=== PATIENT | female | born 1955 | race Asian ===

== ENCOUNTER → 2019-05-31 07:54 | Outpatient (CLI) | payer BC, SELFPAY ==
--- NOTE | 2019-06-04 16:49 | DI.NM.S_ITS ---
DATE OF SERVICE: 05/31/2019 PROCEDURE: Exercise perfusion study. INDICATION: Chest pain with underlying hypertension and hyperlipidemia. RADIOPHARMACEUTICAL: 24.0 millicurie technetium-99m Myoview IV was injected at stress and 26.9 millicurie technetium-99m Myoview IV was injected at rest. FINDINGS: CARDIAC STRESS: The patient underwent exercise perfusion study under the supervision of an attending staff. The patient walked on Blair protocol for 7 minutes 29 seconds and achieved 87 percent of target heart rate, normal blood pressure response. Baseline EKG revealed sinus rhythm. During stress, there were significant artifacts seen, however, in recovery, no convincing ischemic changes. No significant arrhythmias. No obvious ischemic symptoms. The patient achieved functional aerobic impairment of -13 percent and 10.1 METS of workload. RAW DATA: There was breast shadow seen. GATED STUDY: Resting LV ejection fraction is 78 percent and stress LV ejection fraction is 83 percent without any obvious wall motion abnormalities. Resting end-diastolic volume 86 mL. No transient ischemic dilatation. TID ratio 0.80, which is within normal limits. Lung-heart ratio is 0.39 which is within normal limits. MYOCARDIAL PERFUSION: Stress supine and resting supine images revealed minimally decreased perfusion of apex which got resolved during prone images, suggestive of breast tissue attenuation artifact. No convincing ischemia or infarction. CONCLUSION: I will call this study a normal myocardial perfusion study with evidence of breast tissue attenuation artifact, which got resolved during prone images. Good exercise tolerance. Preserved LV function. No significant arrhythmias. Normal hemodynamic response. Overall, this is a low risk myocardial perfusion scan. Maureen Morales - ALINA/itzel/kiara doc#: [id number]/job#: [id number] dd: 06/04/2019 12:45:00 dt: 06/04/2019 16:37:00 DICTATING MD/COPIES TO: Kurt Gaspar MD COPIES MNE: IRWIN;
== END ==
PROVIDERS: Family Provider Physician Assistant Medical; PCP Physician Assistant Medical; Referring Provider Physician Assistant Medical; Visit Provider Physician Assistant Medical
DX: R07.9 Chest pain, unspecified (principal); I10 Essential (primary) hypertension; E78.5 Hyperlipidemia, unspecified
CPT/HCPCS: 78452; 93017; A9502

== ENCOUNTER 2019-12-03 10:50 | Emergency (ER) | payer BC, SELFPAY ==
[2019-12-03] VITALS (10 sets, daily range): BP systolic 149–200; BP diastolic 72–92; PULSE 56–73; RESP 14; TEMP 36.7; O2SAT 97–99; BMI 25.0
[2019-12-03 11:23] LABS: Add Manual Diff / Slide Review NO; Basophils Absolute Auto 100 /uL (0-100); Basophils Percent Auto 1.3 % (0-2); Eosinophils Absolute Auto 300 /uL (0-450); Eosinophils Percent Auto 5.2 % (2-4); Hemoglobin 14.6 g/dL (12.0-16.0); Lymphocytes Absolute Auto 1800 /uL (1100-4500); Lymphocytes Percent Auto 32.1 % (25-40); Mean Corpuscular HGB Conc 34.9 % (30-36); Mean Corpuscular Hemoglobin 31.7 PG (26-34); Monocytes Absolute Auto 400 /uL (0-900); Monocytes Percent Auto 6.8 % (3-14); Neutrophils Absolute Auto 3100 /uL (1500-7000); Neutrophils Percent Auto 54.6 % (50-75); Platelet Count 231 X10^3/uL (150-400); Red Blood Cell Count 4.62 X10^6/uL (4.0-5.2); Red Cell Distribution Width 12.9 % (11.6-14.8); White Blood Cell Count 5.7 X10^3/uL (4.5-11.0)
--- NOTE | 2019-12-03 11:29 | ED.HA ---
HPI - Headache <YOLA ChamberlainBC - Last Filed: 12/03/19 14:26> General Chief Complaint: Headache Stated Complaint: pain in head x 3 days Time Seen by Provider: 12/03/19 11:06 Source: patient Mode of arrival: Ambulatory Limitations: no limitations History of Present Illness HPI Narrative: The patient is a 64-year-old female current everyday smoker with history of hypertension, hyperlipidemia who presents with a chief complaint of a left-sided headache for 3 days. She states that 3 days ago she hit her head on a car, and felt slightly lightheaded and dizzy afterwards. She states that this improved, no current lightheadedness or dizziness, no nausea or vomiting. She denies any chest pain or shortness of breath. She states she does have a history of high blood pressure with her systolic usually in the 130s. She presents to the emergency department with a systolic blood pressure of 200 today. She denies any confusion. She states that the day after she hit her head on the car, she has had left-sided head pain, that comes and goes and feels as though it is pulsing. She states that yesterday she took acetaminophen last night as well as ?leftover oxycodone from a dental procedure.She states that this helped her headache, but she woke up with it again this morning. Patient states that her pain gradually comes on, no thunderclap sensation Related Data Home Medications Medication Instructions Recorded Confirmed hydrochlorothiazide 25 mg PO QDAY #0 08/23/11 metformin [Glucophage XR] 500 mg PO BID #0 08/23/11 rosuvastatin [Crestor] 5 mg PO QDAY #0 08/23/11 Allergies Allergy/AdvReac Type Severity Reaction Status Date / Time Penicillins Allergy Intermediate HIVES Verified 12/03/19 11:07 latex Allergy Mild DERMATITIS Verified 12/03/19 11:07 Review of Systems <ZACHERY Chamberlian - Last Filed: 12/03/19 14:26> Review of Systems Narrative: GENERAL: Denies chills, fatigue, malaise, fever, sweats. HEENT: Denies sinus pain, ear pain, sore throat, difficulty swallowing, dizziness. RESPIRATORY: Denies dyspnea, cough, wheezing, hemoptysis, sputum. CARDIOVASCULAR: Denies chest pain, palpitations, orthopnea, edema, GASTROINTESTINAL: Denies nausea, vomiting, abdominal pain, diarrhea, constipation, melena. : Denies dysuria, frequency, incontinence, hematuria, urinary retention. MUSCULOSKELETAL: denies weakness, joint pain, or bony pain SKIN: Denies rash, skin lesions, or other NEUROLOGIC: See HPI PSYCHIATRIC: No concerning psychosocial issues. 12 point review of systems is negative except for those stated above Patient History <ZACHERY Chamberlain - Last Filed: 12/03/19 14:26> Medical History (Updated 12/03/19 @ 13:37 by ZACHERY Chamberlain) Hypercholesterolemia (Acute) Hypertension (Acute) Type 2 diabetes mellitus (Acute) Social History Smoking Status: Current every day smoker Smoking Status: Current every day smoker tobacco type: cigarettes alcohol intake frequency: 0-2 drinks per day Substance Use Type: does not use Exam <ZACHERY Chamberlain - Last Filed: 12/03/19 14:26> Narrative Exam Narrative: GENERAL: This is a well-nourished, well-developed patient, in no acute distress HEAD: Atraumatic. Normocephalic. No temporal or scalp tenderness. EYES: Pupils equal round and reactive. Extraocular motions intact. No scleral icterus. No injection or drainage. ENT: Nose without bleeding, purulent drainage or septal hematoma. Throat without erythema, tonsillar hypertrophy or exudate. Uvula midline. Airway patent. NECK: Trachea midline. No JVD or lymphadenopathy. Supple, nontender, no meningeal signs. CARDIOVASCULAR: Regular rate and rhythm RESPIRATORY: Clear to auscultation. Breath sounds equal bilaterally. No wheezes, rales, or rhonchi. No cough. No increased respiratory. No accessory GASTROINTESTINAL: Abdomen soft, non-tender, nondistended. No hepato-splenomegaly, or palpable masses. No guarding. EXTREMITIES: No clubbing, cyanosis, or edema. No joint tenderness, effusion, or edema noted. BACK: Nontender without deformity or crepitance. No flank tenderness. NEURO: AOx3. Alert, oriented, GCS 15. Using all extremities normally. SKIN: No rash or erythema on t visible skin. No erythema rash etcetera noted on left side head Initial Vital Signs Initial Vital Signs: Vital Signs Temperature 98.1 F 12/03/19 10:55 Pulse Rate 66 12/03/19 10:55 Respiratory Rate 14 12/03/19 10:55 Blood Pressure 200/92 H 12/03/19 10:55 Pulse Oximetry 99 12/03/19 10:55 <Mary Vergara MD - Last Filed: 12/03/19 18:12> Initial Vital Signs Initial Vital Signs: Vital Signs Temperature 98.1 F 12/03/19 10:55 Pulse Rate 66 12/03/19 10:55 Respiratory Rate 14 12/03/19 10:55 Blood Pressure 200/92 H 12/03/19 10:55 Pulse Oximetry 99 12/03/19 10:55 Scores <ZACHERY Chamberlain - Last Filed: 12/03/19 14:26> GCS [place] coma scale eye opening: Spontaneous [place] coma scale verbal response: Orientated [place] coma scale motor response: Obey commands Zandra coma scale total score: 15 Course <ZACHERY Chamberlain - Last Filed: 12/03/19 14:26> Orders Ordered: ED Orders 12/03/19 11:15 Complete Blood Count AUTO DIFF Stat Comprehensive Metabolic Panel Stat NT-proBNP (BNP-Adult 18+) Stat Partial Thromboplastin Time Stat Prothrombin Time INR Stat Troponin & CK Cardiac Panel Stat 12/03/19 11:41 CT head/brain wo con Stat Urine Microscopic Stat Discontinued Medications Acetaminophen (Tylenol) 975 mg PO NOW ONE Stop: 12/03/19 12:12 Last Admin: 12/03/19 12:59 Dose: 975 mg Documented by: ASHVIN Ketorolac Tromethamine (Toradol) 15 mg IV NOW ONE Stop: 12/03/19 12:12 Last Admin: 12/03/19 12:58 Dose: 15 mg Documented by: ASHVIN Reevaluation(s) Reevaluation #1: Discussed with patient negative head CT. Will treat headache at this point in time. Discussed that [facility] faxed over medication list, does not include anything for blood pressure at this time. Patient states that she might need to see her primary care provider to get a refill. However this point her blood pressure is normalizing Time: 12:12 Vital Signs Vital signs: Vital Signs - 8 hr 12/03/19 10:55 12/03/19 11:05 12/03/19 11:30 Temperature 98.1 F Pulse Rate 66 62 73 Respiratory Rate 14 Blood Pressure 200/92 H Pulse Oximetry 99 98 12/03/19 11:32 12/03/19 11:45 12/03/19 12:00 Temperature Pulse Rate 60 59 L 59 L Respiratory Rate Blood Pressure 164/79 H 156/81 H 167/83 H Pulse Oximetry 98 98 97 12/03/19 12:15 12/03/19 12:30 12/03/19 13:41 Temperature Pulse Rate 58 L 57 L 56 L Respiratory Rate Blood Pressure 151/81 H 149/72 H 176/91 H Pulse Oximetry 97 97 99 12/03/19 13:45 Temperature Pulse Rate Respiratory Rate Blood Pressure 156/84 H Pulse Oximetry <Mary Vergara MD - Last Filed: 12/03/19 18:12> Orders Ordered: ED Orders 12/03/19 11:15 Complete Blood Count AUTO DIFF Stat Comprehensive Metabolic Panel Stat NT-proBNP (BNP-Adult 18+) Stat Partial Thromboplastin Time Stat Prothrombin Time INR Stat Troponin & CK Cardiac Panel Stat 12/03/19 11:41 CT head/brain wo con Stat Urine Microscopic Stat Discontinued Medications Acetaminophen (Tylenol) 975 mg PO NOW ONE Stop: 12/03/19 12:12 Last Admin: 12/03/19 12:59 Dose: 975 mg Documented by: ASHVIN Ketorolac Tromethamine (Toradol) 15 mg IV NOW ONE Stop: 12/03/19 12:12 Last Admin: 12/03/19 12:58 Dose: 15 mg Documented by: ASHVIN Vital Signs Vital signs: Vital Signs - 8 hr 12/03/19 10:55 12/03/19 11:05 12/03/19 11:30 Temperature 98.1 F Pulse Rate 66 62 73 Respiratory Rate 14 Blood Pressure 200/92 H Pulse Oximetry 99 98 12/03/19 11:32 12/03/19 11:45 12/03/19 12:00 Temperature Pulse Rate 60 59 L 59 L Respiratory Rate Blood Pressure 164/79 H 156/81 H 167/83 H Pulse Oximetry 98 98 97 12/03/19 12:15 12/03/19 12:30 12/03/19 13:41 Temperature Pulse Rate 58 L 57 L 56 L Respiratory Rate Blood Pressure 151/81 H 149/72 H 176/91 H Pulse Oximetry 97 97 99 12/03/19 13:45 Temperature Pulse Rate Respiratory Rate Blood Pressure 156/84 H Pulse Oximetry MDM - Headache <Bre Maria [employer]UMENT [employer] AND RE[employer]ER- - Last Filed: 12/03/19 14:26> Lab Data Result diagrams: 12/03/19 11:15 12/03/19 11:15 Labs: Lab Results 12/03/19 12/03/19 12/03/19 Range/Units 11:15 11:15 11:15 WBC 5.7 (4.5-11.0) X10^3/uL RBC 4.62 (4.0-5.2) X10^6/uL Hgb 14.6 (12.0-16.0) g/dL Hct 42.0 (36-46) % MCV 91.0 (80-100) fL MCH 31.7 (26-34) PG MCHC 34.9 (30-36) % RDW 12.9 (11.6-14.8) % Plt Count 231 (150-400) X10^3/uL Neut % (Auto) 54.6 (50-75) % Lymph % (Auto) 32.1 (25-40) % [place] % (Auto) 6.8 (3-14) % Eos % (Auto) 5.2 H (2-4) % Baso % (Auto) 1.3 (0-2) % Neut # (Auto) 3100 (4401-7627) /uL Lymph # (Auto) 1800 (6394-8085) /uL [place] # (Auto) 400 (0-900) /uL Eos # (Auto) 300 (0-450) /uL Baso # (Auto) 100 (0-100) /uL PT 9.8 L (10.1-12.7) SECONDS INR 0.9 (0.9-1.3) APTT 31 (26.4-36.2) SECONDS Sodium 138 (137-145) mmol/L Potassium 4.1 (3.4-5.1) mmol/L Chloride 108 H (98-107) mmol/L Carbon Dioxide 24 (22-32) mmol/L BUN 8 (7-17) mg/dL Creatinine 0.65 (0.52-1.04) mg/dL Estimated GFR > 60.0 (>60) mL/min BUN/Creatinine Ratio 12.3 (6-22) Glucose 112 H (80-110) mg/dL Calcium 9.5 (8.4-10.2) mg/dL Total Bilirubin 0.9 (0.2-1.3) mg/dL AST 23 (14-36) IU/L ALT 21 (<35) IU/L Alkaline Phosphatase 56 (38-126) U/L Total Creatine Kinase (30-135) U/L CK-MB (CK-2) CK-MB (CK-2) Rel Index Troponin I (0.01-0.034) ng/mL NT-Pro-B Natriuret Pep (<125) pg/mL Total Protein 7.5 (6.3-8.2) g/dL Albumin 4.6 (3.5-5.0) g/dL Globulin 2.9 (1.7-4.1) g/dL Albumin/Globulin Ratio 1.6 (1.0-2.8) Urine RBC (0-5/HPF) Urine WBC (0-5/HPF) Ur Squamous Epith Cells (0-5/HPF) Urine Bacteria (None) Ur Culture Indicated? 12/03/19 12/03/19 Range/Units 11:15 11:41 WBC (4.5-11.0) X10^3/uL RBC (4.0-5.2) X10^6/uL Hgb (12.0-16.0) g/dL Hct (36-46) % MCV (80-100) fL MCH (26-34) PG MCHC (30-36) % RDW (11.6-14.8) % Plt Count (150-400) X10^3/uL Neut % (Auto) (50-75) % Lymph % (Auto) (25-40) % [place] % (Auto) (3-14) % Eos % (Auto) (2-4) % Baso % (Auto) (0-2) % Neut # (Auto) (3904-7656) /uL Lymph # (Auto) (2514-1250) /uL [place] # (Auto) (0-900) /uL Eos # (Auto) (0-450) /uL Baso # (Auto) (0-100) /uL PT (10.1-12.7) SECONDS INR (0.9-1.3) APTT (26.4-36.2) SECONDS Sodium (137-145) mmol/L Potassium (3.4-5.1) mmol/L Chloride (98-107) mmol/L Carbon Dioxide (22-32) mmol/L BUN (7-17) mg/dL Creatinine (0.52-1.04) mg/dL Estimated GFR (>60) mL/min BUN/Creatinine Ratio (6-22) Glucose (80-110) mg/dL Calcium (8.4-10.2) mg/dL Total Bilirubin (0.2-1.3) mg/dL AST (14-36) IU/L ALT (<35) IU/L Alkaline Phosphatase (38-126) U/L Total Creatine Kinase 78 (30-135) U/L CK-MB (CK-2) TNP CK-MB (CK-2) Rel Index TNP Troponin I < 0.012 (0.01-0.034) ng/mL NT-Pro-B Natriuret Pep 71 (<125) pg/mL Total Protein (6.3-8.2) g/dL Albumin (3.5-5.0) g/dL Globulin (1.7-4.1) g/dL Albumin/Globulin Ratio (1.0-2.8) Urine RBC None seen (0-5/HPF) Urine WBC None seen (0-5/HPF) Ur Squamous Epith Cells 0-1 /hpf (0-5/HPF) Urine Bacteria Occasional (0-1) (None) Ur Culture Indicated? Cult not indicated Point of Care Testing Glucose POC 107 Urine Dip Bedside Urine Glucose Negative Bedside Urine Bilirubin - Negative Bedside Urine Ketone - Negative Urine Specific [place] 1.010 Bedside Urine Occult Blood +/- Bedside Urine pH 6.0 Bedside Urine Protein - Negative Bedside Urine Urobilinogen - Negative Bedside Urine Nitrite - Negative Bedside Urine Leukocytes - Negative Esterase Imaging Data CT scan - head: Radiologist's Impression: [address] [place] [id number] Scan Report Signed Patient: Maureen Morales LMR#: [id number] : 8Acct:[id number] Age/Sex: 64 / FDate of Service: 12/03/19 Loc: ED Accession Number: [id number] Procedure: CT head/brain wo con [facility]ing [facility]: CT HEAD/BRAIN WO CON INDICATIONS: hit head, lightheaded, headache, htnsive TECHNIQUE: Noncontrast 4.5 mm thick angled axial sections acquired from the foramen magnum to the vertex, with coronal and sagittal reformats. For radiation dose reduction, the following was used: automated exposure control, adjustment of mA and/or kV according to patient size. COMPARISON: None. FINDINGS: Image quality: Excellent. CSF spaces: Basal cisterns are patent. No extra-axial fluid collections. Ventricles are normal in size and shape. Brain: No midline shift. No intracranial masses or hemorrhage. Smith-white matter interface is normal. Skull and face: Calvarium and visualized facial bones are intact, without suspicious lesions. Sinuses: Visualized sinuses and mastoids are clear. IMPRESSION: Normal for age, source of current lightheadedness symptoms is not seen. Dictated by: Quinn Vaz M.D. on 12/03/2019 at 11:52 Approved by: Quinn Vaz M.D. on 12/03/2019 at 11:53 [facility] Narrative Medical decision making narrative: The patient is a 64-year-old female who presents hypertensive with a headache after hitting her head. Given her initial lightheadedness, dizziness, subsequent headache and hypertension, she did get a head CT to rule out any acute intracranial abnormality. This came back negative. The patient's blood pressure normalized during her stay in the emergency department. The patient feels much improved after the above-stated therapies, I encouraged Tylenol Motrin [id number] remedies as needed and able. Encouraged follow-up with primary care provider in the next few days. Patient has no questions or concerns upon discharge and states understanding return precautions as well as follow-up care. She has been nontoxic and well appearing throughout her stay in the emergency department. <Mary Vergara MD - Last Filed: 12/03/19 18:12> Lab Data Labs: Lab Results 12/03/19 12/03/19 12/03/19 Range/Units 11:15 11:15 11:15 WBC 5.7 (4.5-11.0) X10^3/uL RBC 4.62 (4.0-5.2) X10^6/uL Hgb 14.6 (12.0-16.0) g/dL Hct 42.0 (36-46) % MCV 91.0 (80-100) fL MCH 31.7 (26-34) PG MCHC 34.9 (30-36) % RDW 12.9 (11.6-14.8) % Plt Count 231 (150-400) X10^3/uL Neut % (Auto) 54.6 (50-75) % Lymph % (Auto) 32.1 (25-40) % [place] % (Auto) 6.8 (3-14) % Eos % (Auto) 5.2 H (2-4) % Baso % (Auto) 1.3 (0-2) % Neut # (Auto) 3100 (4524-9962) /uL Lymph # (Auto) 1800 (0450-1680) /uL [place] # (Auto) 400 (0-900) /uL Eos # (Auto) 300 (0-450) /uL Baso # (Auto) 100 (0-100) /uL PT 9.8 L (10.1-12.7) SECONDS INR 0.9 (0.9-1.3) APTT 31 (26.4-36.2) SECONDS Sodium 138 (137-145) mmol/L Potassium 4.1 (3.4-5.1) mmol/L Chloride 108 H (98-107) mmol/L Carbon Dioxide 24 (22-32) mmol/L BUN 8 (7-17) mg/dL Creatinine 0.65 (0.52-1.04) mg/dL Estimated GFR > 60.0 (>60) mL/min BUN/Creatinine Ratio 12.3 (6-22) Glucose 112 H (80-110) mg/dL Calcium 9.5 (8.4-10.2) mg/dL Total Bilirubin 0.9 (0.2-1.3) mg/dL AST 23 (14-36) IU/L ALT 21 (<35) IU/L Alkaline Phosphatase 56 (38-126) U/L Total Creatine Kinase (30-135) U/L CK-MB (CK-2) CK-MB (CK-2) Rel Index Troponin I (0.01-0.034) ng/mL NT-Pro-B Natriuret Pep (<125) pg/mL Total Protein 7.5 (6.3-8.2) g/dL Albumin 4.6 (3.5-5.0) g/dL Globulin 2.9 (1.7-4.1) g/dL Albumin/Globulin Ratio 1.6 (1.0-2.8) Urine RBC (0-5/HPF) Urine WBC (0-5/HPF) Ur Squamous Epith Cells (0-5/HPF) Urine Bacteria (None) Ur Culture Indicated? 12/03/19 12/03/19 Range/Units 11:15 11:41 WBC (4.5-11.0) X10^3/uL RBC (4.0-5.2) X10^6/uL Hgb (12.0-16.0) g/dL Hct (36-46) % MCV (80-100) fL MCH (26-34) PG MCHC (30-36) % RDW (11.6-14.8) % Plt Count (150-400) X10^3/uL Neut % (Auto) (50-75) % Lymph % (Auto) (25-40) % [place] % (Auto) (3-14) % Eos % (Auto) (2-4) % Baso % (Auto) (0-2) % Neut # (Auto) (5293-9916) /uL Lymph # (Auto) (2782-8636) /uL [place] # (Auto) (0-900) /uL Eos # (Auto) (0-450) /uL Baso # (Auto) (0-100) /uL PT (10.1-12.7) SECONDS INR (0.9-1.3) APTT (26.4-36.2) SECONDS Sodium (137-145) mmol/L Potassium (3.4-5.1) mmol/L Chloride (98-107) mmol/L Carbon Dioxide (22-32) mmol/L BUN (7-17) mg/dL Creatinine (0.52-1.04) mg/dL Estimated GFR (>60) mL/min BUN/Creatinine Ratio (6-22) Glucose (80-110) mg/dL Calcium (8.4-10.2) mg/dL Total Bilirubin (0.2-1.3) mg/dL AST (14-36) IU/L ALT (<35) IU/L Alkaline Phosphatase (38-126) U/L Total Creatine Kinase 78 (30-135) U/L CK-MB (CK-2) TNP CK-MB (CK-2) Rel Index TNP Troponin I < 0.012 (0.01-0.034) ng/mL NT-Pro-B Natriuret Pep 71 (<125) pg/mL Total Protein (6.3-8.2) g/dL Albumin (3.5-5.0) g/dL Globulin (1.7-4.1) g/dL Albumin/Globulin Ratio (1.0-2.8) Urine RBC None seen (0-5/HPF) Urine WBC None seen (0-5/HPF) Ur Squamous Epith Cells 0-1 /hpf (0-5/HPF) Urine Bacteria Occasional (0-1) (None) Ur Culture Indicated? Cult not indicated Point of Care Testing Glucose POC 107 Urine Dip Bedside Urine Glucose Negative Bedside Urine Bilirubin - Negative Bedside Urine Ketone - Negative Urine Specific [place] 1.010 Bedside Urine Occult Blood +/- Bedside Urine pH 6.0 Bedside Urine Protein - Negative Bedside Urine Urobilinogen - Negative Bedside Urine Nitrite - Negative Bedside Urine Leukocytes - Negative Esterase Discharge Plan Departure Patient Disposition: Home Clinical Impression: Headache Qualifiers: Headache type: unspecified Headache chronicity pattern: acute headache Intractability: not intractable Qualified Code(s): R51 - Headache Hypertension Qualifiers: Hypertension type: unspecified Qualified Code(s): I10 - Essential (primary) hypertension Discharge Date/Time: 12/03/19 13:46 Instructions: Essential Hypertension, DI for Headache Activity Restrictions/Additional Instructions: Thank you for trusting us with your care today. As discussed, your head CT came back with no acute findings. Her blood pressures normalized well during her emergency department stay. We have given you pain medication. Headache that has helped. I encouraged [id number] medications as needed and able to source Tylenol and/or Motrin Please come back to emergency department for any acute concerns. Please follow-up with primary care provider in the next few days. Prescriptions: No Action metformin [Glucophage XR] 500 MG tablet extended release 24 hr 500 mg PO BID Qty: 0 RF: 0 hydrochlorothiazide 25 MG tablet 25 mg PO QDAY Qty: 0 RF: 0 rosuvastatin [Crestor] 5 MG tablet 5 mg PO QDAY Qty: 0 RF: 0 Referrals: Nina Jackson PA-C [Primary Care Provider] - Stand Alone Forms: Work Release Note <Mary Vergara MD - Last Filed: 12/03/19 18:12> Cosign ED Attending Cosignature Attestation: I was immediately available in the department for consultation throughout this patient's visit. I agree with documentation as above. Mary Vergara MD
[2019-12-03 11:30] LABS: INR 0.9 (0.9-1.3); Prothrombin Time 9.8 SECONDS (10.1-12.7)
[2019-12-03 11:32] LABS: Creatine Kinase 78 U/L (30-135); PTT Partial Thromboplastin Tim 31 SECONDS (26.4-36.2)
[2019-12-03 11:34] LABS: Alanine Aminotransferase 21 IU/L (<35); Albumin 4.6 g/dL (3.5-5.0); Albumin Globulin Ratio 1.6 (1.0-2.8); Alkaline Phosphatase 56 U/L (38-126); Aspartate Aminotransferase 23 IU/L (14-36); BUN Creatinine Ratio 12.3 (6-22); Bilirubin Total 0.9 mg/dL (0.2-1.3); Blood Urea Nitrogen 8 mg/dL (7-17); Calcium 9.5 mg/dL (8.4-10.2); Carbon Dioxide 24 mmol/L (22-32); Chloride 108 mmol/L (98-107); Estimated Glomerular Filt Rate > 60.0 mL/min (>60); Globulin 2.9 g/dL (1.7-4.1); Glucose 112 mg/dL (80-110); HEMOLYSIS < 15 (0-50); Potassium 4.1 mmol/L (3.4-5.1); Sodium 138 mmol/L (137-145); Total Protein 7.5 g/dL (6.3-8.2)
--- NOTE | 2019-12-03 11:41 | DI.CT.S_ITS ---
PROCEDURE: CT HEAD/BRAIN WO CON INDICATIONS: hit head, lightheaded, headache, htnsive TECHNIQUE: Noncontrast 4.5 mm thick angled axial sections acquired from the foramen magnum to the vertex, with coronal and sagittal reformats. For radiation dose reduction, the following was used: automated exposure control, adjustment of mA and/or kV according to patient size. COMPARISON: None. FINDINGS: Image quality: Excellent. CSF spaces: Basal cisterns are patent. No extra-axial fluid collections. Ventricles are normal in size and shape. Brain: No midline shift. No intracranial masses or hemorrhage. Smith-white matter interface is normal. Skull and face: Calvarium and visualized facial bones are intact, without suspicious lesions. Sinuses: Visualized sinuses and mastoids are clear. IMPRESSION: Normal for age, source of current lightheadedness symptoms is not seen. Dictated by: Quinn Vaz M.D. on 12/03/2019 at 11:52 Approved by: Quinn Vaz M.D. on 12/03/2019 at 11:53
[2019-12-03 11:46] LABS: NT-proBNP (BNP-Adult 18+) 71 pg/mL (<125); Troponin I < 0.012 ng/mL (0.01-0.034)
[2019-12-03 12:01] LABS: RBC Urine None Seen (0-5/HPF); WBC Urine None Seen (0-5/HPF)
[2019-12-03 12:14] LABS: Bacteria Urine Occasional (0-1); Culture Indicated Urine Cult Not Indicated; Squamous Epithelial Cell Urine 0-1 /HPF (0-5/HPF)
[2019-12-03] MEDS: KETOROLAC 60 MG/2 ML VIAL 15 MG IV (12:58)
[2019-12-03] MEDS: ACETAMINOPHEN 325 MG TABLET 975 MG PO (12:59)
== END 2019-12-03 13:46 | disposition home or self-care (01) ==
PROVIDERS: Emergency Provider Nurse Practitioner Family; Family Provider Physician Assistant Medical; PCP Physician Assistant Medical
DX: R51 Headache (principal); I10 Essential (primary) hypertension; E78.5 Hyperlipidemia, unspecified
CPT/HCPCS: 36415; 70450; 80053; 81003; 81015; 82550; 82962; 83880; 84484; 85025; 85610; 85730; 96374; 99284; J1885

== ENCOUNTER 2020-09-21 07:38 | Emergency (ER) | payer BC, SELFPAY ==
[2020-09-21] VITALS (13 sets, daily range): BP systolic 148–188; BP diastolic 69–100; PULSE 55–62; RESP 12–29; TEMP 36.9; O2SAT 97–99; BMI 25.3
--- NOTE | 2020-09-21 08:00 | ED.DIZZY ---
HPI - Dizziness General Chief Complaint: Dizziness Stated Complaint: unfocused, double vision, dizzy Time Seen by Provider: 09/21/20 07:59 Source: patient Mode of arrival: Ambulatory Limitations: no limitations History of Present Illness HPI Narrative: This is a 65-year-old female who comes in with complaint of double vision and feeling dizzy. Patient states her vision is also little bit blurred. She states she went to bed last night normal. When she woke up this morning she appreciated that her vision was atypical. She states that she has double vision when she uses both eye. When she closes her right or her left she states it appears normal. She describes it as being 2 images superimposed just slightly horizontal to each other. They are not to completely separate images. She states has not been significantly worsening but has not improved. Patient has some mild discomfort in her eyes and a frontal headache but denies any temporal pain. She denies any severe headache. She denies any vomiting but has had some mild nausea. No chest pain, shortness of breath, no other GI or urinary symptoms. Patient denies numbness, tingling or weakness. She states she feels a little unsteady walking. She takes metformin for diabetes, hydrochlorothiazide for hypertension and dyslipidemia. Patient has not had similar symptoms in the past. Related Data Home Medications Medication Instructions Recorded Confirmed hydrochlorothiazide 25 mg PO QDAY #0 08/23/11 metformin [Glucophage XR] 500 mg PO BID #0 08/23/11 rosuvastatin [Crestor] 5 mg PO QDAY #0 08/23/11 Allergies Allergy/AdvReac Type Severity Reaction Status Date / Time Penicillins Allergy Intermediate HIVES Verified 12/03/19 11:07 latex Allergy Mild DERMATITIS Verified 12/03/19 11:07 Review of Systems Review of Systems ROS Unobtainable: All systems reviewed & are unremarkable except as noted in HPI and below Patient History Medical History Hypercholesterolemia Hypertension Type 2 diabetes mellitus Social History Smoking Status: Current every day smoker Smoking Status: Current every day smoker tobacco type: cigarettes alcohol intake frequency: 0-2 drinks per day Substance Use Type: does not use Exam Narrative Exam Narrative: GEN: well nourished, well appearing female, alert and oriented x 3, patient appears to be in mild distress. HEENT: Atraumatic, pupils are equal round reactive to light, extraocular movements are intact, no nystagmus, nares are clear, TMs are clear with no fluid, there is no conjunctival pallor. Throat is clear without any exudates, erythema, tonsillar enlargement or uvular deviation, no facial droop Visual acuity: right [20/40], left [20/40] without correction. IOP: Right 16 mm Hg, Left 17 mm Hg General: no globe trauma Eyelids: normal inspection. Conjunctiva/Sclera: normal inspection Corneas: normal inspection, examined with fluroscein on with no uptake other than scleral uptake. EOM: intact, no palsy/entrapment Pupils: PERRL, normal accomadation, pupil normal Anterior Chambers: normal inspection, no hypema Posterior: normal fundoscopic bilaterally although difficult. HEART: Regular rate and rhythm without murmur, clicks, rubs. LUNGS:Lungs clear to auscultation, no wheezes, rales, crackles, chest moves symmetrically ABD:bowel sounds normal, soft, non-tender, no guarding, rebound, rigidity, no masses noted, no hepatosplenomegaly MSCL: Non-tender, no muscle atrophy, muscles strength 5/5 upper and lower extremities, full range of motion NEURO:CN 2-12 intact, sensation normal, finger nose finger test normal, heel blank test normal SKIN: No rash, erythema or skin changes noted. Initial Vital Signs Initial Vital Signs: Vital Signs Temperature 98.4 F 09/21/20 07:55 Pulse Rate 61 09/21/20 07:55 Respiratory Rate 18 09/21/20 07:55 Blood Pressure 188/91 H 09/21/20 07:55 Pulse Oximetry 99 09/21/20 07:55 Course Orders Ordered: ED Orders 09/21/20 12:59 MR head/brain wo/w con Stat Discontinued Medications Acetaminophen (Acetaminophen 325 Mg Tablet) 975 mg PO NOW ONE Stop: 09/21/20 13:04 Last Admin: 09/21/20 15:21 Dose: Not Given Documented by: ABEAMA Fluorescein Sodium (Fluorescein 1 Mg Strip) 1 mg EYE-BOTH NOW ONE Stop: 09/21/20 08:34 Last Admin: 09/21/20 12:29 Dose: 1 mg Documented by: ASHVIN Sodium Chloride (Normal Saline 0.9%) 1,000 mls @ 150 mls/hr IV CONT MAXIMILIANO Last Admin: 09/21/20 09:35 Dose: 150 mls/hr Documented by: ASHVIN Ondansetron HCl (Ondansetron 4 Mg/2 Ml Inj) 4 mg IV NOW ONE Stop: 09/21/20 08:32 Last Admin: 09/21/20 09:35 Dose: 4 mg Documented by: ASHVIN Proparacaine HCl (Proparacaine 0.5% Ophth Pam) 1 drops EYE-BOTH NOW ONE Stop: 09/21/20 08:32 Last Admin: 09/21/20 12:27 Dose: 1 drop Documented by: ASHVIN Reevaluation(s) Reevaluation #2: Patient no worsening symptoms. Time: 14:53 Consultations Consultation #1: Dr. Herron, ophthalmology with [facility]. Recommends adding on ESR CRP as well as MRI with and without contrast. If these are elevated or altered he would recommend transferred on to her review as we do not have Ophthalmology or Dermatology for possible biopsy for GCA. If these are all negative patient can follow up outpatient with Ophthalmology in the next day or so. Time: 13:00 Vital Signs Vital signs: Vital Signs - 8 hr 09/21/20 11:05 09/21/20 11:06 09/21/20 11:30 Pulse Rate 56 L 55 L 61 Respiratory Rate 14 17 Blood Pressure 181/81 H 153/87 H Pulse Oximetry 99 98 98 09/21/20 12:00 09/21/20 12:30 09/21/20 13:00 Pulse Rate 60 60 59 L Respiratory Rate 14 29 H 22 Blood Pressure 157/86 H 175/87 H 160/100 H Pulse Oximetry 98 97 98 MDM - Dizziness Lab Data Attestation: I reviewed the patient's lab results. Result diagrams: 09/21/20 08:05 09/21/20 08:05 Labs: Lab Results 09/21/20 09/21/20 09/21/20 Range/Units 08:05 08:05 08:05 WBC 6.3 (4.5-11.0) X10^3/uL RBC 4.61 (4.0-5.2) X10^6/uL Hgb 14.6 (12.0-16.0) g/dL Hct 42.7 (36-46) % MCV 92.6 (80-100) fL MCH 31.6 (26-34) PG MCHC 34.1 (30-36) % RDW 12.8 (11.6-14.8) % Plt Count 232 (150-400) X10^3/uL Neut % (Auto) 69.6 (50-75) % Lymph % (Auto) 20.6 L (25-40) % [place] % (Auto) 5.7 (3-14) % Eos % (Auto) 3.0 (2-4) % Baso % (Auto) 1.1 (0-2) % Neut # (Auto) 4400 (3136-5065) /uL Lymph # (Auto) 1300 (6512-4917) /uL [place] # (Auto) 400 (0-900) /uL Eos # (Auto) 200 (0-450) /uL Baso # (Auto) 100 (0-100) /uL ESR (0-20) MM/HR PT 10.7 (10.1-12.7) SECONDS INR 1.0 (0.9-1.3) APTT 31 (26.4-36.2) SECONDS Sodium 138 (137-145) mmol/L Potassium 4.0 (3.4-5.1) mmol/L Chloride 104 (98-107) mmol/L Carbon Dioxide 25 (22-32) mmol/L BUN 10 (7-17) mg/dL Creatinine 0.64 (0.52-1.04) mg/dL Estimated GFR > 60.0 (>60) mL/min BUN/Creatinine Ratio 15.6 (6-22) Glucose 171 H (80-110) mg/dL Calcium 9.6 (8.4-10.2) mg/dL C-Reactive Protein (<1.0) mg/dL 09/21/20 09/21/20 Range/Units 08:05 08:05 WBC (4.5-11.0) X10^3/uL RBC (4.0-5.2) X10^6/uL Hgb (12.0-16.0) g/dL Hct (36-46) % MCV (80-100) fL MCH (26-34) PG MCHC (30-36) % RDW (11.6-14.8) % Plt Count (150-400) X10^3/uL Neut % (Auto) (50-75) % Lymph % (Auto) (25-40) % [place] % (Auto) (3-14) % Eos % (Auto) (2-4) % Baso % (Auto) (0-2) % Neut # (Auto) (8709-6503) /uL Lymph # (Auto) (8617-0174) /uL [place] # (Auto) (0-900) /uL Eos # (Auto) (0-450) /uL Baso # (Auto) (0-100) /uL ESR 6 (0-20) MM/HR PT (10.1-12.7) SECONDS INR (0.9-1.3) APTT (26.4-36.2) SECONDS Sodium (137-145) mmol/L Potassium (3.4-5.1) mmol/L Chloride (98-107) mmol/L Carbon Dioxide (22-32) mmol/L BUN (7-17) mg/dL Creatinine (0.52-1.04) mg/dL Estimated GFR (>60) mL/min BUN/Creatinine Ratio (6-22) Glucose (80-110) mg/dL Calcium (8.4-10.2) mg/dL C-Reactive Protein < 0.5 (<1.0) mg/dL Urine Dip Bedside Urine Glucose Negative Bedside Urine Bilirubin - Negative Bedside Urine Ketone - Negative Urine Specific [place] 1.015 Bedside Urine Occult Blood - Negative Bedside Urine pH 6.5 Bedside Urine Protein - Negative Bedside Urine Urobilinogen - Negative Bedside Urine Nitrite - Negative Bedside Urine Leukocytes - Negative Esterase Imaging Data CT scan - head: Radiologist's Impression: [address] [id number] Scan ReportSigned Patient: Maureen Morales LMR#: [id number]: 8Acct:[id number]/Sex: 65 / FDate of Service: 09/21/20Loc: EDAccession Number: [id number] Procedure: CT head/brain wo con Ordering Provider: Bre Ratliff D.O. PROCEDURE: CT HEAD/BRAIN WO CON INDICATIONS: monocular diploplia TECHNIQUE: Noncontrast 4.5 mm thick angled axial sections acquired from the foramen magnum to the vertex, with coronal and sagittal reformats. For radiation dose reduction, the following was used: automated exposure control, adjustment of mA and/or kV according to patient size. COMPARISON: [facility], CT, CT HEAD/BRAIN WO CON, 12/03/2019, 11:36. FINDINGS: Image quality: Excellent. CSF spaces: Basal cisterns are patent. No extra-axial fluid collections. The ventricles are symmetric in size and shape. Brain: No intracranial bleeds or masses. There is cerebral volume loss for age, with resultant ventricular and sulcal prominence. There are periventricular and deep white matter chronic small vessel ischemic changes. There is intracranial internal carotid artery atherosclerosis. Skull and face: Calvarium and visualized facial bones appear intact, without suspicious lesions. Sinuses: Mild chronic right ethmoid disease. Mild right maxillary sinus mucosal thickening. IMPRESSION: 1. No evidence acute stroke, hemorrhage, or mass. 2. Chronic right maxillary and ethmoid sinus disease. Dictated by: Danish Garcia M.D. on 09/21/2020 at 9:03 Approved by: Danish Garcia M.D. on 09/21/2020 at 9:04 MRI : Radiologist's Impression: [address] [id number] Resonance ReportSigned Patient: Maureen Morales LMR#: [id number]: 8Acct:[id number]/Sex: 65 / FDate of Service: 09/21/20Loc: EDAccession Number: [id number] Procedure: MR head/brain wo/w con Ordering Provider: Bre Ratliff D.O. PROCEDURE: MR HEAD/BRAIN WO/W CON INDICATIONS: binocular diploplia. TECHNIQUE: Noncontrast axial T1 spin echo, axial T2 fast spin echo, sagittal and axial FLAIR, coronal T2 fast spin echo, axial gradient echo, axial diffusion and ADC through the brain. After the administration of contrast, axial and coronal 3D VIBE or T1 spin echo with fat saturation through the brain. No evidence of acute stroke, hemorrhage, or mass. CWith without contrast.OMPARISON: FINDINGS: Image quality: Excellent. CSF Spaces: Basal cisterns are patent. No extra-axial fluid collections. Ventricles are normal in size and shape. Brain: No midline shift. No intracranial bleeds or masses. No abnormal intracranial enhancement. The brainstem appears normal. Diffusion-weighted images demonstrate no acute ischemic insults. No chronic ischemic insults. Normal intravascular flow voids are present. Skull and face: Calvarial marrow is normal in signal. Orbits appear normal. Sinuses: Right maxillary sinus mucosal thickening and bilateral ethmoid mucosal thickening. IMPRESSION: 1. Chronic sinus disease. 2. Otherwise unremarkable brain MRI with no evidence of acute stroke, hemorrhage, or mass. Dictated by: Danish Garcia M.D. on 09/21/2020 at 13:03 Approved by: Danish Garcia M.D. on 09/21/2020 at 13:06 ECG Data Attestation: I personally reviewed and interpreted this ECG as follows: Prior ECG tracings: not available for review Interpretation: Sinus Kirill rate of 59 W[place] 158 QRS 84 and QTC [address]-elevation depression noted. MDM Narrative Medical decision making narrative: This is a 65-year-old female comes in with binocular diplopia of acute onset. Patient had symptoms upon wakening. She has not had any improvement. She has no other neurologic symptoms on exam. She has full extraocular movement although she has some mild difficulty looking to the right inner with her right eye but can easily overcome this. Patient's labs, CT head were negative. Discussion with Ophthalmology [facility] recommended MRI and if this was negative to follow-up outpatient with Ophthalmology. Discussed all the findings with our patient here today she has not had any worsening or changing symptoms in the department. Patient was given referral for local ophthalmology and asked to return if she is having any new or worsening symptoms. Discharge Plan Departure Patient Disposition: Home Clinical Impression: Binocular vision disorder with diplopia Instructions: DI for Double Vision Activity Restrictions/Additional Instructions: Follow up with Ophthalmology, call for appointment 1st thing tomorrow. Your case was discussed today with Dr. Herron ophthalmology with [facility]. Below is referral for local ophthalmology. Continue home medications as prescribed. You may take Tylenol up to a 1000 mg every 8 hours as needed for pain. Your head CT, MRI and lab work today are reassuring but do not give us an exact cause of your symptoms. Please return to the emergency department for fevers, lightheadedness or passing out, sudden vision changes, new worsening eye pain, persistent nausea or vomiting, new weakness, numbness or tingling of your extremities, severe headache or other new or concerning symptoms. Prescriptions: No Action metformin [Glucophage XR] 500 MG tablet extended release 24 hr 500 mg PO BID Qty: 0 RF: 0 hydrochlorothiazide 25 MG tablet 25 mg PO QDAY Qty: 0 RF: 0 rosuvastatin [Crestor] 5 MG tablet 5 mg PO QDAY Qty: 0 RF: 0 Referrals: Artur Bello MD [Physician] - Nina Jackson PA-C [Primary Care Provider] - Stand Alone Forms: Work Release Note
--- NOTE | 2020-09-21 08:31 | DI.CT.S_ITS ---
PROCEDURE: CT HEAD/BRAIN WO CON INDICATIONS: monocular diploplia TECHNIQUE: Noncontrast 4.5 mm thick angled axial sections acquired from the foramen magnum to the vertex, with coronal and sagittal reformats. For radiation dose reduction, the following was used: automated exposure control, adjustment of mA and/or kV according to patient size. COMPARISON: [facility], CT, CT HEAD/BRAIN WO CON, 12/03/2019, 11:36. FINDINGS: Image quality: Excellent. CSF spaces: Basal cisterns are patent. No extra-axial fluid collections. The ventricles are symmetric in size and shape. Brain: No intracranial bleeds or masses. There is cerebral volume loss for age, with resultant ventricular and sulcal prominence. There are periventricular and deep white matter chronic small vessel ischemic changes. There is intracranial internal carotid artery atherosclerosis. Skull and face: Calvarium and visualized facial bones appear intact, without suspicious lesions. Sinuses: Mild chronic right ethmoid disease. Mild right maxillary sinus mucosal thickening. IMPRESSION: 1. No evidence acute stroke, hemorrhage, or mass. 2. Chronic right maxillary and ethmoid sinus disease. Dictated by: Danish Garcia M.D. on 09/21/2020 at 9:03 Approved by: Danish Garcia M.D. on 09/21/2020 at 9:04
[2020-09-21 08:45] LABS: Add Manual Diff / Slide Review NO; BUN Creatinine Ratio 15.6 (6-22); Basophils Absolute Auto 100 /uL (0-100); Basophils Percent Auto 1.1 % (0-2); Blood Urea Nitrogen 10 mg/dL (7-17); Calcium 9.6 mg/dL (8.4-10.2); Carbon Dioxide 25 mmol/L (22-32); Chloride 104 mmol/L (98-107); Eosinophils Absolute Auto 200 /uL (0-450); Estimated Glomerular Filt Rate > 60.0 mL/min (>60); Glucose 171 mg/dL (80-110); HEMOLYSIS < 15 (0-50); Hematocrit 42.7 % (36-46); Hemoglobin 14.6 g/dL (12.0-16.0); Lymphocytes Absolute Auto 1300 /uL (1100-4500); Lymphocytes Percent Auto 20.6 % (25-40); Mean Corpuscular HGB Conc 34.1 % (30-36); Mean Corpuscular Hemoglobin 31.6 PG (26-34); Mean Corpuscular Volume 92.6 fL (80-100); Monocytes Absolute Auto 400 /uL (0-900); Monocytes Percent Auto 5.7 % (3-14); Neutrophils Absolute Auto 4400 /uL (1500-7000); Neutrophils Percent Auto 69.6 % (50-75); Platelet Count 232 X10^3/uL (150-400); Red Blood Cell Count 4.61 X10^6/uL (4.0-5.2); Red Cell Distribution Width 12.8 % (11.6-14.8); Sodium 138 mmol/L (137-145); White Blood Cell Count 6.3 X10^3/uL (4.5-11.0)
[2020-09-21 09:19] LABS: Prothrombin Time 10.7 SECONDS (10.1-12.7)
[2020-09-21 09:22] LABS: PTT Partial Thromboplastin Tim 31 SECONDS (26.4-36.2)
[2020-09-21] MEDS: SODIUM CHLORIDE 0.9% 1,000 ML 150 ML IV (09:35)
[2020-09-21] MEDS: ONDANSETRON 4 MG/2 ML INJ IV (09:35)
[2020-09-21] MEDS: PROPARACAINE 0.5% OPHTH SOL 1 DROPS EYE-BOTH (12:27)
[2020-09-21] MEDS: FLUORESCEIN 1 MG STRIP EYE-BOTH (12:29)
--- NOTE | 2020-09-21 12:59 | DI.MRI.S_ITS ---
PROCEDURE: MR HEAD/BRAIN WO/W CON INDICATIONS: binocular diploplia. TECHNIQUE: Noncontrast axial T1 spin echo, axial T2 fast spin echo, sagittal and axial FLAIR, coronal T2 fast spin echo, axial gradient echo, axial diffusion and ADC through the brain. After the administration of contrast, axial and coronal 3D VIBE or T1 spin echo with fat saturation through the brain. No evidence of acute stroke, hemorrhage, or mass. CWith without contrast.OMPARISON: FINDINGS: Image quality: Excellent. CSF Spaces: Basal cisterns are patent. No extra-axial fluid collections. Ventricles are normal in size and shape. Brain: No midline shift. No intracranial bleeds or masses. No abnormal intracranial enhancement. The brainstem appears normal. Diffusion-weighted images demonstrate no acute ischemic insults. No chronic ischemic insults. Normal intravascular flow voids are present. Skull and face: Calvarial marrow is normal in signal. Orbits appear normal. Sinuses: Right maxillary sinus mucosal thickening and bilateral ethmoid mucosal thickening. IMPRESSION: 1. Chronic sinus disease. 2. Otherwise unremarkable brain MRI with no evidence of acute stroke, hemorrhage, or mass. Dictated by: Danish Garcia M.D. on 09/21/2020 at 13:03 Approved by: Danish Garcia M.D. on 09/21/2020 at 13:06
[2020-09-21 13:21] LABS: C-Reactive Protein Quant < 0.5 mg/dL (<1.0)
[2020-09-21 13:27] LABS: Erythrocyte Sedimentation Rate 6 MM/HR (0-20)
--- NOTE | 2020-09-24 10:46 | PC.NURSE ---
Late Entry- per RN IV fluids DC'd when IV removed at 1511
== END 2020-09-21 15:23 | disposition home or self-care (01) ==
PROVIDERS: Emergency Provider Emergency Medicine; Family Provider Physician Assistant Medical; PCP Physician Assistant Medical
DX: H53.2 Diplopia (principal); R42 Dizziness and giddiness; R51.9 Headache, unspecified
CPT/HCPCS: 36415; 70450; 70553; 80048; 81003; 85025; 85610; 85651; 85730; 86140; 93005; 93010; 96361; 96374; 99284; A9579; J2405

== ENCOUNTER 2022-03-02 20:25 | Emergency (ER) | payer BC, SELFPAY ==
[2022-03-02 20:35] VITALS: BP 164/82; PULSE 103; RESP 18; TEMP 36.7; O2SAT 98; BMI 24.7
[2022-03-02 20:38] VITALS: PULSE 102; O2SAT 97
[2022-03-02 20:39] VITALS: BP 164/82; PULSE 104; O2SAT 98
--- NOTE | 2022-03-02 20:49 | ED_ITS ---
HPI - Nausea/Vomiting/Diarrhea General Chief complaint: Nausea/Vomiting/Diarrhea Stated complaint: diarhea since last night Time Seen by Provider: 03/02/22 20:43 Source: patient Mode of arrival: Ambulatory History of Present Illness HPI Narrative: 66-year-old female daily smoker with history of hypertension, hyperlipidemia and type 2 diabetes presents with her daughter and a chief complaint of frequent watery stools over the past 24 hours. She states she is gone to many times to count and now feels fatigued, dizzy and lightheaded. She denies any change in medications or diet. She denies fever or chills nor any blood in her stool. She is had no recent international travel, exposure to bad food, other ill persons with similar symptoms, or recent antibiotic use. She denies fever or chills. She does have a mild headache but denies runny nose, sore throat or cough. She has mild abdominal cramping that seems to intensify until she has a bowel movement at which point she has improvement until she needs to go again. She denies any dysuria, frequency or urgency. Related Data Home Medications Medication Instructions Recorded Confirmed hydrochlorothiazide 25 mg tablet 25 mg PO QDAY ##0 08/23/11 metformin 500 mg tablet,extended 500 mg PO BID ##0 08/23/11 release 24 hr (Glucophage XR) rosuvastatin 5 mg tablet (Crestor) 5 mg PO QDAY ##0 08/23/11 Previous Rx's Medication Instructions Recorded fidaxomicin 200 mg tablet 200 mg PO BID 10 days #20 tabs 03/03/22 vancomycin 250 mg capsule 250 mg PO QID 10 days #40 caps 03/03/22 Allergies Allergy/AdvReac Type Severity Reaction Status Date / Time Penicillins Allergy Intermediate HIVES Verified 12/03/19 11:07 latex Allergy Mild DERMATITIS Verified 12/03/19 11:07 Review of Systems Review of Systems Narrative: GENERAL: See HPI HEENT: Denies sinus pain, ear pain, sore throat, difficulty swallowing, dizziness. RESPIRATORY: Denies dyspnea, cough, wheezing, hemoptysis, sputum. CARDIOVASCULAR: Denies chest pain, palpitations, orthopnea, edema, GASTROINTESTINAL: See HPI : Denies dysuria, frequency, incontinence, hematuria, urinary retention. MUSCULOSKELETAL: denies weakness, joint pain, or bony pain SKIN: Denies rash, skin lesions, or other NEUROLOGIC: Denies weakness, headache, numbness, change in speech, confusion, seizures, incoordination. PSYCHIATRIC: No concerning psychosocial issues. 12 point review of systems is negative except for those stated above Patient History Medical History Hypercholesterolemia Hypertension Type 2 diabetes mellitus Social History Smoking Status: Current every day smoker Smoking Status: Current every day smoker tobacco type: cigarettes alcohol intake frequency: 0-2 drinks per day Substance Use Type: does not use Exam Narrative Exam Narrative: GENERAL: [66] year old patient appears stated age. Well-developed patient, in mild distress. HEAD: Atraumatic. Normocephalic. EYES: Pupils equal round and reactive. Extraocular motions intact. No scleral icterus. No injection or drainage. ENT: Nose without bleeding, purulent drainage. Throat without erythema, tonsillar hypertrophy or exudate. Airway patent. NECK: Trachea midline. Non tender CARDIOVASCULAR: Regular rate and rhythm without murmurs, gallops, or rubs. RESPIRATORY: Clear to auscultation. Breath sounds equal bilaterally. No wheezes, rales, or rhonchi. GASTROINTESTINAL: Abdomen soft, non-tender, nondistended. Bowel sounds present in all 4 quadrants EXTREMITIES: No edema or joint tenderness. BACK: Nontender without deformity or crepitance. No flank tenderness. NEURO: AOx3. SKIN: No rash or erythema of visible areas Initial Vital Signs Initial Vital Signs: Vital Signs Temperature 98.1 F 03/02/22 20:35 Pulse Rate 103 H 03/02/22 20:35 Respiratory Rate 18 03/02/22 20:35 Blood Pressure 164/82 H 03/02/22 20:35 Pulse Oximetry 98 03/02/22 20:35 Oxygen Delivery Method 03/02/22 20:35 Course Orders Ordered: ED Orders 03/02/22 20:55 Covid-19 + FLU A/B + RSV - PCR Stat 03/02/22 21:00 Complete Blood Count AUTO DIFF Stat Comprehensive Metabolic Panel Stat 03/02/22 22:00 GI Panel (Film Array) Stat Urinalysis and Microscopic Stat Discontinued Medications Sodium Chloride (Normal Saline 0.9%) 1,000 mls @ 1,000 mls/hr IV BOLUS ONE Stop: 03/02/22 21:47 Last Infusion: 03/02/22 21:59 Dose: 0 mls/hr Documented By: Admin: 03/02/22 21:11 Dose: 1,000 mls/hr Documented By: MERCEDEZ Vital Signs Vital signs: Vital Signs - 8 hr 03/03/22 00:24 03/03/22 00:24 Pulse Rate 100 H Respiratory Rate 18 Blood Pressure 132/78 Pulse Oximetry 99 MDM - Nausea/Vomiting/Diarrhea Lab Data Result diagrams: 03/02/22 21:00 03/02/22 21:00 Labs: Lab Results 03/02/22 03/02/22 03/02/22 Range/Units 20:55 21:00 21:00 WBC 5.7 (4.5-11.0) X10^3/uL RBC 4.75 (4.0-5.2) X10^6/uL Hgb 14.9 (12.0-16.0) g/dL Hct 42.9 (36-46) % MCV 90.3 (80-100) fL MCH 31.3 (26-34) PG MCHC 34.6 (30-36) % RDW 13.6 (11.6-14.8) % Plt Count 174 (150-400) X10^3/uL Neut % (Auto) 66.5 (50-75) % Lymph % (Auto) 14.1 L (25-40) % Sullivan % (Auto) 13.9 (3-14) % Eos % (Auto) 5.2 H (2-4) % Baso % (Auto) 0.3 (0-2) % Neut # (Auto) 3800 (7379-8850) /uL Lymph # (Auto) 800 L (7410-4988) /uL Sullivan # (Auto) 800 (0-900) /uL Eos # (Auto) 300 (0-450) /uL Baso # (Auto) 0 (0-100) /uL Sodium 133 L (137-145) mmol/L Potassium 3.5 (3.4-5.1) mmol/L Chloride 104 (98-107) mmol/L Carbon Dioxide 17 L (22-32) mmol/L BUN 14 (7-17) mg/dL Creatinine 0.76 (0.52-1.04) mg/dL Estimated GFR > 60 (>60) mL/min BUN/Creatinine Ratio 18.4 (6-22) Glucose 193 H (80-110) mg/dL Calcium 8.6 (8.4-10.2) mg/dL Total Bilirubin 0.7 (0.2-1.3) mg/dL AST 30 (14-36) IU/L ALT 41 H (<35) IU/L Alkaline Phosphatase 70 (38-126) U/L Total Protein 6.7 (6.3-8.2) g/dL Albumin 4.1 (3.5-5.0) g/dL Globulin 2.6 (1.7-4.1) g/dL Albumin/Globulin Ratio 1.6 (1.0-2.8) Urine Color Urine Appearance Urine pH (4.5-8.0) Ur Specific [place] (1.000-1.035) Urine Protein (Negative) Urine Glucose (UA) (Negative) g/dL Urine Ketones (NEGATIVE) Urine Occult Blood (Negative) Urine Nitrate (Negative) Urine Bilirubin (NEGATIVE) Urine Urobilinogen (0.2) E.U./dL Ur Leukocyte Esterase (NEGATIVE) Urine RBC (0-5/HPF) Urine WBC (0-5/HPF) Ur Squamous Epith Cells (0-5/HPF) Urine Bacteria (None) Ur Culture Indicated? Stl C. cayetanensis PCR (Not Detect) Stool Rotavirus (PCR) (Not Detect) Stool Adenovirus (PCR) (Not Detect) Stool Astrovirus (PCR) (Not Detect) Stool Cryptosporidium PCR (Not Detect) Stl E.coli Shiga Tox PCR (Not Detect) St Sh/Enteroin Ecoli PCR (Not Detect) Stool E coli O157 PCR (Not Detect) Stl Enterotoxigenic E PCR (Not Detect) Stool EPEC (PCR) (Not Detect) Stl E. histolytica PCR (Not Detect) Stool Giardia Lamblia PCR (Not Detect) Stool Sapovirus (PCR) (Not Detect) Stl P. shigelloides PCR (Not Detect) St Y.enterocolitica PCR (Not Detect) Stool Vibrio (PCR) (Not Detect) Stl Vibrio cholerae PCR (Not Detect) Stl Enteroaggr Ecoli PCR (Not Detect) Stl Norovirus GI/GII PCR (Not Detect) Campylobacter (PCR) (Not Detect) C. difficile Tox (PCR) (Not Detect) SARS-CoV-2 (PCR) Negative (Negative) Influenza A (RT-PCR) Flu a negative (NEGATIVE) Influenza B (RT-PCR) Flu b negative (NEGATIVE) RSV (PCR) Negative (Negative) Salmonella (PCR) (Not Detect) 03/02/22 03/02/22 Range/Units 22:00 22:00 WBC (4.5-11.0) X10^3/uL RBC (4.0-5.2) X10^6/uL Hgb (12.0-16.0) g/dL Hct (36-46) % MCV (80-100) fL MCH (26-34) PG MCHC (30-36) % RDW (11.6-14.8) % Plt Count (150-400) X10^3/uL Neut % (Auto) (50-75) % Lymph % (Auto) (25-40) % Sullivan % (Auto) (3-14) % Eos % (Auto) (2-4) % Baso % (Auto) (0-2) % Neut # (Auto) (0619-9413) /uL Lymph # (Auto) (0597-5139) /uL Sullivan # (Auto) (0-900) /uL Eos # (Auto) (0-450) /uL Baso # (Auto) (0-100) /uL Sodium (137-145) mmol/L Potassium (3.4-5.1) mmol/L Chloride (98-107) mmol/L Carbon Dioxide (22-32) mmol/L BUN (7-17) mg/dL Creatinine (0.52-1.04) mg/dL Estimated GFR (>60) mL/min BUN/Creatinine Ratio (6-22) Glucose (80-110) mg/dL Calcium (8.4-10.2) mg/dL Total Bilirubin (0.2-1.3) mg/dL AST (14-36) IU/L ALT (<35) IU/L Alkaline Phosphatase (38-126) U/L Total Protein (6.3-8.2) g/dL Albumin (3.5-5.0) g/dL Globulin (1.7-4.1) g/dL Albumin/Globulin Ratio (1.0-2.8) Urine Color Yellow Urine Appearance Clear Urine pH 5.5 (4.5-8.0) Ur Specific [place] <=1.005 (1.000-1.035) Urine Protein Negative (Negative) Urine Glucose (UA) Negative (Negative) g/dL Urine Ketones Negative (NEGATIVE) Urine Occult Blood 1+ H (Negative) Urine Nitrate Negative (Negative) Urine Bilirubin Negative (NEGATIVE) Urine Urobilinogen 0.2 (0.2) E.U./dL Ur Leukocyte Esterase Negative (NEGATIVE) Urine RBC 0-1/hpf (0-5/HPF) Urine WBC None seen (0-5/HPF) Ur Squamous Epith Cells 1-5 /hpf (0-5/HPF) Urine Bacteria None seen (None) Ur Culture Indicated? Cult not indicated Stl C. cayetanensis PCR Not detected (Not Detect) Stool Rotavirus (PCR) Not detected (Not Detect) Stool Adenovirus (PCR) Detected H (Not Detect) Stool Astrovirus (PCR) Not detected (Not Detect) Stool Cryptosporidium PCR Not detected (Not Detect) Stl E.coli Shiga Tox PCR Not detected (Not Detect) St Sh/Enteroin Ecoli PCR Not detected (Not Detect) Stool E coli O157 PCR Not detected (Not Detect) Stl Enterotoxigenic E PCR Not detected (Not Detect) Stool EPEC (PCR) Not detected (Not Detect) Stl E. histolytica PCR Not detected (Not Detect) Stool Giardia Lamblia PCR Not detected (Not Detect) Stool Sapovirus (PCR) Not detected (Not Detect) Stl P. shigelloides PCR Not detected (Not Detect) St Y.enterocolitica PCR Not detected (Not Detect) Stool Vibrio (PCR) Not detected (Not Detect) Stl Vibrio cholerae PCR Not detected (Not Detect) Stl Enteroaggr Ecoli PCR Not detected (Not Detect) Stl Norovirus GI/GII PCR Not detected (Not Detect) Campylobacter (PCR) Not detected (Not Detect) C. difficile Tox (PCR) Detected H (Not Detect) SARS-CoV-2 (PCR) (Negative) Influenza A (RT-PCR) (NEGATIVE) Influenza B (RT-PCR) (NEGATIVE) RSV (PCR) (Negative) Salmonella (PCR) Not detected (Not Detect) MDM Narrative Medical decision making narrative: 66-year-old female daily smoker with history of hypertension, hyperlipidemia and diabetes presents with her daughter and feels generally unwell with multiple episodes of painless diarrhea. Though she denies recent antibiotics or travel her differential diagnosis includes C diff, norovirus, influenza, electrolyte abnormality and diabetic emergency. her labs are reassuring and showed no significant leukocytosis or electrolyte abnormality. Stool sample is consistent with Clostridium difficile. She has no signs of severe disease, is tolerating oral hydration and an appropriate patient for discharge. We discussed fidaxomicin versus oral vancomycin and I encouraged her to take a paper prescription to pharmacies in attempt to find the former but assured her that vancomycin is appropriate if she is unable. She is encouraged to consider clear liquids for a day or 2 and then advance slowly as tolerated. She understands that this diagnosis is likely to take a few days at least to feel better. She is given extensive return precautions and questions have been answered to her apparent satisfaction Discharge Plan Departure Patient Disposition: Home Clinical Impression: C. difficile colitis Instructions: DI for Colitis Activity Restrictions/Additional Instructions: *You have been diagnosed with [frequent diarrhea due to Clostridium difficile (C diff) and adenovirus noted in your stool culture.] *What to do: *Please continue to take your regular medications as directed. [ ] New medication prescriptions sent to your pharmacy: [ ] [x ] New medication written as a paper prescription. The preferred treatment is Fidaxomicin, however, as we discussed many pharmacies may not have this treatment or it may not be covered by your insurance. In the event that you have trouble obtaining fidaxomicin I have included a backup prescription of vancomycin which until recently was the preferred treatment for this diagnosis. [ ] No new medications given *Please follow up with your primary care provider in 2-3 days, call for an appointment. Let them know you were seen in the Emergency Department and that we ask that you be seen in follow up. We will electronically transmit a record of today's note if your PCP is in our system *Return to Emergency Department if you should have any new, worsening or concerning symptoms Prescriptions: New fidaxomicin 200 mg tablet 200 mg PO BID 10 Days Qty: 20 0RF vancomycin 250 mg capsule 250 mg PO QID 10 Days Qty: 40 0RF No Action metformin [Glucophage XR] 500 MG tablet extended release 24 hr 500 mg PO BID Qty: 0 hydrochlorothiazide 25 MG tablet 25 mg PO QDAY Qty: 0 rosuvastatin [Crestor] 5 MG tablet 5 mg PO QDAY Qty: 0 Referrals: Nina Jackson PA-C [Primary Care Provider] - Visit Report Forms: Patient Portal/API
[2022-03-02 21:00] VITALS: BP 143/78; PULSE 100; O2SAT 96
[2022-03-02] MEDS: SODIUM CHLORIDE 0.9% 1,000 ML 1000 ML IV (21:11)
[2022-03-02 21:15] LABS: Add Manual Diff / Slide Review NO; Basophils Absolute Auto 0 /uL (0-100); Basophils Percent Auto 0.3 % (0-2); Eosinophils Absolute Auto 300 /uL (0-450); Eosinophils Percent Auto 5.2 % (2-4); Hematocrit 42.9 % (36-46); Hemoglobin 14.9 g/dL (12.0-16.0); Lymphocytes Absolute Auto 800 /uL (1100-4500); Lymphocytes Percent Auto 14.1 % (25-40); Mean Corpuscular HGB Conc 34.6 % (30-36); Mean Corpuscular Hemoglobin 31.3 PG (26-34); Mean Corpuscular Volume 90.3 fL (80-100); Monocytes Absolute Auto 800 /uL (0-900); Monocytes Percent Auto 13.9 % (3-14); Neutrophils Absolute Auto 3800 /uL (1500-7000); Neutrophils Percent Auto 66.5 % (50-75); Platelet Count 174 X10^3/uL (150-400); Red Blood Cell Count 4.75 X10^6/uL (4.0-5.2); Red Cell Distribution Width 13.6 % (11.6-14.8); White Blood Cell Count 5.7 X10^3/uL (4.5-11.0)
[2022-03-02 21:27] LABS: Alanine Aminotransferase 41 IU/L (<35); Albumin 4.1 g/dL (3.5-5.0); Albumin Globulin Ratio 1.6 (1.0-2.8); Alkaline Phosphatase 70 U/L (38-126); Aspartate Aminotransferase 30 IU/L (14-36); BUN Creatinine Ratio 18.4 (6-22); Bilirubin Total 0.7 mg/dL (0.2-1.3); Blood Urea Nitrogen 14 mg/dL (7-17); Calcium 8.6 mg/dL (8.4-10.2); Carbon Dioxide 17 mmol/L (22-32); Chloride 104 mmol/L (98-107); Estimated Glomerular Filt Rate > 60 mL/min (>60); Globulin 2.6 g/dL (1.7-4.1); Glucose 193 mg/dL (80-110); HEMOLYSIS < 15 (0-50); Potassium 3.5 mmol/L (3.4-5.1); Sodium 133 mmol/L (137-145); Total Protein 6.7 g/dL (6.3-8.2)
[2022-03-02 21:30] VITALS: BP 123/71; PULSE 93; O2SAT 96
[2022-03-02 21:39] LABS: Influenza A - CEPHEID Flu A NEGATIVE (NEGATIVE); Influenza B - CEPHEID Flu B NEGATIVE (NEGATIVE); Respiratory Syncytial Virus Negative (Negative)
[2022-03-02 21:44] LABS: COVID-19 CEPHEID 4-PLEX PCR Negative (Negative)
--- NOTE | 2022-03-02 22:00 | PC.NURSE ---
pt ambulated to restroom with a steady gait
[2022-03-02 22:16] LABS: Appearance Urine UA CLEAR; Bilirubin Urine UA NEGATIVE (NEGATIVE); Color Urine UA YELLOW; Glucose Urine UA NEGATIVE (Negative); Ketones Urine UA NEGATIVE (NEGATIVE); Leukocyte Esterase Urine UA NEGATIVE (NEGATIVE); Nitrite Urine UA NEGATIVE (Negative); Occult Blood Urine UA 1+ (Negative); Protein Urine UA NEGATIVE (Negative); Specific Gravity Urine UA <=1.005 (1.000-1.035); Urobilinogen Urine UA 0.2 E.U./dL (0.2)
[2022-03-02 22:24] LABS: Bacteria Urine None Seen; Culture Indicated Urine Cult Not Indicated; RBC Urine 0-1/HPF (0-5/HPF); Squamous Epithelial Cell Urine 1-5 /HPF (0-5/HPF); WBC Urine None Seen (0-5/HPF); pH Urine UA 5.5 (4.5-8.0)
[2022-03-02 23:35] LABS: Adenovirus F 40/41 Detected (Not Detect); Astrovirus Not Detected (Not Detect); Campylobacter Not Detected (Not Detect); Cryptosporidium Not Detected (Not Detect); Cyclospora cayetanensis Not Detected (Not Detect); Entamoeba histolytica Not Detected (Not Detect); Enteroaggregative E.coli Not Detected (Not Detect); Enteropathogenic E.coli Not Detected (Not Detect); Enterotoxigenic E.coli It/st Not Detected (Not Detect); Giardia lamblia Not Detected (Not Detect); Norovirus GI/GII Not Detected (Not Detect); Plesiomonsa shigelloides Not Detected (Not Detect); Rotavirus A Not Detected (Not Detect); Salmonella Not Detected (Not Detect); Sapovirus Not Detected (Not Detect); Shiga-like toxin-prod E.coli Not Detected (Not Detect); Shigella/Enteroinvasive E.coli Not Detected (Not Detect); Vibrio Not Detected (Not Detect); Vibrio cholerae Not Detected (Not Detect); Yersinia enterocolitica Not Detected (Not Detect)
[2022-03-02 23:36] LABS: Clostridium difficile toxin AB Detected (Not Detect)
[2022-03-03 00:24] VITALS: BP 132/78; PULSE 100; RESP 18; O2SAT 99
[2022-03-04 14:10] LABS: C difficie Toxins A and B, EIA Negative (Negative)
== END 2022-03-03 00:33 | disposition home or self-care (01) ==
PROVIDERS: Emergency Provider Emergency Medicine; Family Provider Physician Assistant Medical; PCP Physician Assistant Medical
DX: A04.72 Enterocolitis due to Clostridium difficile, not specified as recurrent (principal); Z20.822 Contact with and (suspected) exposure to COVID-19
CPT/HCPCS: 0241U; 36415; 80053; 81001; 85025; 87324; 87507; 96360; 99284

== ENCOUNTER 2022-09-05 11:55 | Emergency (ER) | payer BC, SELFPAY ==
[2022-09-05] VITALS (7 sets, daily range): BP systolic 142–211; BP diastolic 77–111; PULSE 79–98; RESP 19–28; TEMP 36.7; O2SAT 96–99; BMI 24.0
--- NOTE | 2022-09-05 12:13 | DI.RAD.S_ITS ---
PROCEDURE: XR CHEST 1V INDICATIONS: chest pain TECHNIQUE: One view of the chest was acquired. COMPARISON: [facility], , CHEST 2 VIEW, 05/28/2013, 15:46. FINDINGS: Surgical changes and devices: Status post cholecystectomy. Lungs and pleura: Lungs are clear. No pleural effusions or pneumothorax. Mediastinum: Mediastinal contours appear normal. Heart size is normal. Bones and chest wall: No suspicious bony lesions. Overlying soft tissues appear unremarkable. IMPRESSION: No evidence of an acute cardiopulmonary abnormality. Dictated by: Zeus Way D.O. on 09/05/2022 at 11:35 Approved by: Zeus Way D.O. on 09/05/2022 at 11:36
[2022-09-05 12:20] LABS: Add Manual Diff / Slide Review NO; Basophils Absolute Auto 100 /uL (0-100); Basophils Percent Auto 0.9 % (0-2); Eosinophils Absolute Auto 200 /uL (0-450); Eosinophils Percent Auto 3.6 % (2-4); Hematocrit 39.2 % (36-46); Lymphocytes Absolute Auto 1800 /uL (1100-4500); Mean Corpuscular HGB Conc 35.8 % (30-36); Mean Corpuscular Hemoglobin 31.7 PG (26-34); Mean Corpuscular Volume 88.6 fL (80-100); Monocytes Absolute Auto 700 /uL (0-900); Monocytes Percent Auto 11.9 % (3-14); Neutrophils Absolute Auto 3200 /uL (1500-7000); Neutrophils Percent Auto 53.6 % (50-75); Platelet Count 244 X10^3/uL (150-400); Red Blood Cell Count 4.42 X10^6/uL (4.0-5.2); Red Cell Distribution Width 12.3 % (11.6-14.8)
[2022-09-05 12:27] LABS: PTT Partial Thromboplastin Tim 30 SECONDS (26-36)
[2022-09-05 12:30] LABS: Alanine Aminotransferase 67 IU/L (<35); Albumin 4.5 g/dL (3.5-5.0); Albumin Globulin Ratio 1.5 (1.0-2.8); Alkaline Phosphatase 65 U/L (38-126); Aspartate Aminotransferase 53 IU/L (14-36); BUN Creatinine Ratio 27.1 (6-22); Blood Urea Nitrogen 16 mg/dL (7-17); Calcium 9.8 mg/dL (8.4-10.2); Carbon Dioxide 24 mmol/L (22-32); Chloride 105 mmol/L (98-107); Creatine Kinase 62 U/L (30-135); Estimated Glomerular Filt Rate > 60 mL/min (>60); Globulin 3.1 g/dL (1.7-4.1); Glucose 197 mg/dL (80-110); HEMOLYSIS < 15 (0-50); Lipase 397 U/L (23-300); Potassium 3.9 mmol/L (3.4-5.1); Sodium 139 mmol/L (137-145); Total Protein 7.6 g/dL (6.3-8.2)
[2022-09-05 12:41] LABS: Troponin I < 0.012 ng/mL (0.01-0.034)
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
[2022-09-05] MEDS: KETOROLAC 30 MG/ML VIAL 15 MG IV (13:20)
== END 2022-09-05 13:41 | disposition home or self-care (01) ==
PROVIDERS: Emergency Provider Emergency Medicine; Family Provider Physician Assistant Medical; PCP Physician Assistant Medical
DX: R00.2 Palpitations (principal); R07.9 Chest pain, unspecified
CPT/HCPCS: 36415; 71045; 80053; 82550; 82962; 83690; 83735; 84484; 85025; 85610; 85730; 93005; 93010; 96374; 99284; J1885

== ENCOUNTER 2023-07-11 11:33 | Emergency (ER) | payer BC, SELFPAY ==
[2023-07-11] VITALS (16 sets, daily range): BP systolic 141–181; BP diastolic 70–86; PULSE 54–64; RESP 16–58; TEMP 36.6; O2SAT 96–100; BMI 24.7
--- NOTE | 2023-07-11 11:44 | DI.RAD.S_ITS ---
PROCEDURE: XR CHEST 1V INDICATIONS: chest pain TECHNIQUE: One view of the chest was acquired. COMPARISON: [facility], CR, XR CHEST 1V, 09/05/2022, 12:09. FINDINGS: Surgical changes and devices: None. Lungs and pleura: Lungs are clear. No pleural effusions or pneumothorax. Mediastinum: Mediastinal contours appear normal. Heart size is borderline prominent. Bones and chest wall: No suspicious bony lesions. Overlying soft tissues appear unremarkable. IMPRESSION: No acute pulmonary process. Dictated by: Giovana Alexandra M.D. on 07/11/2023 at 12:02 Approved by: Giovana Alexandra M.D. on 07/11/2023 at 12:12
[2023-07-11 12:19] LABS: Appearance Urine UA CLEAR; Bilirubin Urine UA NEGATIVE (NEGATIVE); Color Urine UA YELLOW; Glucose Urine UA 1+ g/dL (Negative); Ketones Urine UA NEGATIVE (NEGATIVE); Leukocyte Esterase Urine UA NEGATIVE (NEGATIVE); Nitrite Urine UA NEGATIVE (Negative); Occult Blood Urine UA NEGATIVE (Negative); Protein Urine UA NEGATIVE (Negative); Specific Gravity Urine UA <=1.005 (1.000-1.035); Urobilinogen Urine UA 0.2 E.U./dL (0.2)
[2023-07-11 12:20] LABS: pH Urine UA 5.5 (4.5-8.0)
[2023-07-11 12:22] LABS: Bacteria Urine None Seen; Culture Indicated Urine Cult Not Indicated; RBC Urine None Seen (0-5/HPF); Squamous Epithelial Cell Urine None Seen (0-5/HPF); Urine Volume 10mL (spun); WBC Urine None Seen (0-5/HPF)
--- NOTE | 2023-07-11 12:23 | ED_ITS ---
HPI - General Adult General Chief complaint: Hypertension Stated complaint: HBP, headache Time Seen by Provider: 07/11/23 12:23 Source: patient and family Mode of arrival: Ambulatory History of Present Illness HPI narrative: 68-year-old female with history of hypertension dyslipidemia diabetes type 2 who states her blood pressure has not been well controlled per she has a headache on the left side with double vision for the last several days. She describes it as vertical double vision. Patient denies any syncope, no fevers or chills. She had double vision episode similar about a year ago she does not recall what they told her was the cause but did have workup. She is unsure if she got new glasses. She does not know what happened. Patient states no numbness tingling or weakness otherwise. No chest pain or shortness of breath, no nausea or vomiting no other GI or urinary symptoms. She is on vanc, metoprolol, losartan and atorvastatin for medications. She took extra doses of her metoprolol new irbesartan last night. She took her normal doses this morning. Patient states she has had prior cholecystectomy. Allergic to penicillin and latex. Smokes a half pack daily, no alcohol, no recreational drugs. PA all for primary care. Was seen at walk-in or urgent care today found to have a systolic of 190 sent to the ED. Related Data Home Medications Medication Instructions Recorded Confirmed atorvastatin 10 mg tablet 10 mg PO DAILY 07/11/23 07/11/23 irbesartan 150 mg tablet 150 mg PO DAILY 07/11/23 07/11/23 metoprolol succinate 100 mg 100 mg PO BID 07/11/23 07/11/23 tablet,extended release 24 hr sitagliptin phosphate 50 1 tab PO BID 07/11/23 07/11/23 mg-metformin 1,000 mg tablet (Gwen) Allergies Allergy/AdvReac Type Severity Reaction Status Date / Time Penicillins Allergy Intermediate HIVES Verified 12/03/19 11:07 latex Allergy Mild DERMATITIS Verified 12/03/19 11:07 Review of Systems Review of Systems ROS Unobtainable: All systems reviewed & are unremarkable except as noted in HPI and below Patient History Medical History Hypercholesterolemia Type 2 diabetes mellitus Hypertension Social History Smoking Status: Current every day smoker Smoking Status: Current every day smoker tobacco type: cigarettes alcohol intake frequency: 0-2 drinks per day Substance Use Type: does not use Exam Narrative Exam Narrative: GEN: well nourished, well appearing female, alert and oriented x 3, patient appears to be in mild distress. HEENT: Atraumatic, pupils are equal round reactive to light, extraocular movements are intact with movement but patient's left eye does turn inwards little bit towards the medial canthus, but she is able to overcome with range motion, patient notes double vision is binocular is not present when she covers her left or right eye. Nares are clear, TMs are clear with no fluid, there is no conjunctival pallor. Throat is clear without any exudates, erythema, tonsillar enlargement or uvular deviation, HEART: Regular rate and rhythm without murmur, clicks, rubs. Pulses are equal in upper and lower extremities LUNGS:Lungs clear to auscultation, no wheezes, rales, crackles, chest moves symmetrically ABD:bowel sounds normal, soft, non-tender, no guarding, rebound, rigidity, no masses noted, no hepatosplenomegaly :No CVA tenderness MSCL: Non-tender, no muscle atrophy, muscles strength 5/5 upper and lower extremities, full range of motion. NEURO:CN 2-12 intact, sensation normal, finger nose finger test was mildly difficult bilaterally but patient notes she has double vision when she attempts this, heel blank test normal, romberg normal Initial Vital Signs Initial Vital Signs: Vital Signs Temperature 97.8 F 07/11/23 11:37 Pulse Rate 59 L 07/11/23 11:37 Respiratory Rate 58 H 07/11/23 11:37 Blood Pressure 181/86 H 07/11/23 11:37 Pulse Oximetry 100 07/11/23 11:37 Oxygen Delivery Method Room Air 07/11/23 11:37 Course Orders Ordered: ED Orders 07/11/23 11:44 XR chest 1V Stat EKG-12 Lead Stat 07/11/23 12:10 Urinalysis and Microscopic Stat 07/11/23 12:18 CRP [C-Reactive Protein Quant] Stat Complete Blood Count AUTO DIFF Stat Comprehensive Metabolic Panel Stat ESR [Erythrocyte Sedimentation Rate] Stat Lipase Stat Magnesium Stat PTT Partial Thromboplastin Michi Stat Prothrombin Time INR Stat TSH [Thyroid Stimulating Hormone] Stat Troponin & CK Cardiac Panel Stat 07/11/23 12:49 CT angio head and neck Stat CT head/brain wo con Stat 07/11/23 15:08 Free T3, Triiodothyronine Free Stat Free T4, Direct Thyroxine Stat Discontinued Medications Acetaminophen (Acetaminophen 325 Mg Tablet) 975 mg PO NOW ONE Stop: 07/11/23 14:54 Last Admin: 07/11/23 15:05 Dose: 975 mg Documented By: MAN Vital Signs Vital signs: Vital Signs - 8 hr 07/11/23 11:37 07/11/23 11:51 07/11/23 12:00 Temperature 97.8 F Pulse Rate 59 L 59 L 59 L Respiratory Rate 58 H 18 16 Blood Pressure 181/86 H Pulse Oximetry 100 Oxygen Delivery Method Room Air 07/11/23 12:05 07/11/23 12:05 07/11/23 12:30 Temperature Pulse Rate 64 57 L Respiratory Rate 18 17 Blood Pressure 167/81 H Pulse Oximetry 99 97 Oxygen Delivery Method Room Air 07/11/23 12:30 07/11/23 13:07 07/11/23 13:08 Temperature Pulse Rate 57 L Respiratory Rate 20 Blood Pressure 156/83 H 154/70 H Pulse Oximetry 98 Oxygen Delivery Method 07/11/23 13:08 07/11/23 13:30 07/11/23 13:30 Temperature Pulse Rate 57 L 56 L Respiratory Rate 21 19 Blood Pressure 154/76 H Pulse Oximetry 97 97 Oxygen Delivery Method 07/11/23 14:00 07/11/23 14:00 07/11/23 14:31 Temperature Pulse Rate 54 L 60 Respiratory Rate 17 22 Blood Pressure 146/75 H Pulse Oximetry 96 98 Oxygen Delivery Method 07/11/23 14:33 07/11/23 14:33 07/11/23 14:40 Temperature Pulse Rate 56 L Respiratory Rate 21 Blood Pressure 167/79 H 164/83 H Pulse Oximetry 99 Oxygen Delivery Method 07/11/23 14:40 07/11/23 15:00 07/11/23 15:00 Temperature Pulse Rate 60 55 L Respiratory Rate 17 18 Blood Pressure 141/82 H Pulse Oximetry 99 98 Oxygen Delivery Method 07/11/23 15:30 07/11/23 15:31 07/11/23 15:31 Temperature Pulse Rate 56 L 55 L Respiratory Rate 20 19 Blood Pressure 166/81 H Pulse Oximetry 96 97 Oxygen Delivery Method 07/11/23 16:00 07/11/23 16:00 Temperature Pulse Rate 54 L Respiratory Rate 17 Blood Pressure 151/77 H Pulse Oximetry 96 Oxygen Delivery Method Medical Decision Making Lab Data 07/11/23 12:18 07/11/23 12:18 Labs: Lab Results 07/11/23 07/11/23 Range/Units 12:10 12:18 WBC 7.2 (4.5-11.0) X10^3/uL RBC 4.88 (4.0-5.2) X10^6/uL Hgb 15.3 (12.0-16.0) g/dL Hct 44.0 (36-46) % MCV 90.1 (80-100) fL MCH 31.2 (26-34) PG MCHC 34.7 (30-36) % RDW 13.0 (11.6-14.8) % Plt Count 252 (150-400) X10^3/uL Neut % (Auto) 52.8 (50-75) % Lymph % (Auto) 33.9 (25-40) % Ida % (Auto) 7.3 (3-14) % Eos % (Auto) 5.1 H (2-4) % Baso % (Auto) 0.9 (0-2) % Neut # (Auto) 3800 (1409-0644) /uL Lymph # (Auto) 2400 (4844-4264) /uL Ida # (Auto) 500 (0-900) /uL Eos # (Auto) 400 (0-450) /uL Baso # (Auto) 100 (0-100) /uL ESR 6 (0-20) MM/HR PT 10.7 (9.4-12.5) SECONDS INR 0.9 (0.9-1.3) APTT 36 (25.1-36.5) SECONDS Sodium 139 (137-145) mmol/L Potassium 4.0 (3.4-5.1) mmol/L Chloride 105 (98-107) mmol/L Carbon Dioxide 27 (22-32) mmol/L BUN 12 (7-17) mg/dL Creatinine 0.71 (0.52-1.04) mg/dL Estimated GFR > 60 (>60) mL/min BUN/Creatinine Ratio 16.9 (6-22) Glucose 142 H (80-110) mg/dL Calcium 10.1 (8.4-10.2) mg/dL Magnesium 1.9 (1.6-2.3) mg/dL Total Bilirubin 1.1 (0.2-1.3) mg/dL AST 27 (14-36) IU/L ALT 30 (<35) IU/L Alkaline Phosphatase 105 (38-126) U/L Total Creatine Kinase 119 (30-135) U/L Troponin I < 0.012 (0.01-0.034) ng/mL C-Reactive Protein < 0.5 (<1.0) mg/dL Total Protein 8.5 H (6.3-8.2) g/dL Albumin 4.9 (3.5-5.0) g/dL Globulin 3.6 (1.7-4.1) g/dL Albumin/Globulin Ratio 1.4 (1.0-2.8) Lipase 294 (23-300) U/L TSH < 0.015 L (0.47-4.68) uIU/mL Urine Color Yellow Urine Appearance Clear Urine pH 5.5 (4.5-8.0) Ur Specific [place] <=1.005 (1.000-1.035) Urine Protein Negative (Negative) Urine Glucose (UA) 1+ H (Negative) g/dL Urine Ketones Negative (NEGATIVE) Urine Occult Blood Negative (Negative) Urine Nitrate Negative (Negative) Urine Bilirubin Negative (NEGATIVE) Urine Urobilinogen 0.2 (0.2) E.U./dL Ur Leukocyte Esterase Negative (NEGATIVE) Urine RBC None seen (0-5/HPF) Urine WBC None seen (0-5/HPF) Ur Squamous Epith Cells None seen (0-5/HPF) Urine Bacteria None seen (None) Ur Culture Indicated? Cult not indicated Vol Urine Centrifuged 10ml (spun) Imaging Data CT scan - head: Radiologist's Impression: [address] [address] [address] Scan Report Signed Patient: Maureen Morales MR#: [id number] : 1955 Acct:[id number] Age/Sex: 68 / F Date of Service: 07/11/23 Loc: ED Accession Number: [id number] Procedure: CT head/brain wo con Ordering Provider: Bre Ratliff D.O. PROCEDURE: CT HEAD/BRAIN WO CON INDICATIONS: htn, vertical binocular diplopia x1 week TECHNIQUE: Noncontrast 4.5 mm thick angled axial sections acquired from the foramen magnum to the vertex, with coronal and sagittal reformats. For radiation dose reduction, the following was used: automated exposure control, adjustment of mA and/or kV according to patient size. COMPARISON: [facility], CT, CT ANGIO HEAD AND NECK, 07/11/2023, 13:02. [facility], MR, MR HEAD/BRAIN WO/W CON, 09/21/2020, 13:07. [facility], CT, CT HEAD/BRAIN WO CON, 12/03/2019, 11:36. [facility], CT, CT HEAD/BRAIN WO CON, 09/21/2020, 9:11. FINDINGS: Image quality: Diagnostic. CSF spaces: Basal cisterns are patent. No extra-axial fluid collections. Ventricles are unchanged appearance demonstrating slight asymmetric prominence of the left ventricle. Brain: No midline shift. No intracranial masses or hemorrhage. Smith-white matter interface is normal. Skull and face: Calvarium and visualized facial bones are intact, without suspicious lesions. Sinuses: Visualized sinuses and mastoids are clear. IMPRESSION: Unchanged appearance of mild asymmetric appearance of the ventricles dating to 2020. Otherwise, no acute intracranial process is identified. Dictated by: Giovana Alexandra M.D. on 07/11/2023 at 14:09 Approved by: Giovana Alexandra M.D. on 07/11/2023 at 14:10 CTA - brain/neck: Radiologist's Impression: [place] [address] CT Scan Report Signed Patient: Maureen Morales MR#: [id number] : 1955 Acct:[id number] Age/Sex: 68 / F Date of Service: 07/11/23 Loc: ED Accession Number: [id number] Procedure: CT head/brain wo con Ordering Provider: Bre Ratliff D.O. PROCEDURE: CT HEAD/BRAIN WO CON INDICATIONS: htn, vertical binocular diplopia x1 week TECHNIQUE: Noncontrast 4.5 mm thick angled axial sections acquired from the foramen magnum to the vertex, with coronal and sagittal reformats. For radiation dose reduction, the following was used: automated exposure control, adjustment of mA and/or kV according to patient size. COMPARISON: [facility], CT, CT ANGIO HEAD AND NECK, 07/11/2023, 13:02. [facility], MR, MR HEAD/BRAIN WO/W CON, 09/21/2020, 13:07. [facility], CT, CT HEAD/BRAIN WO CON, 12/03/2019, 11:36. [facility], CT, CT HEAD/BRAIN WO CON, 09/21/2020, 9:11. FINDINGS: Image quality: Diagnostic. CSF spaces: Basal cisterns are patent. No extra-axial fluid collections. Ventricles are unchanged appearance demonstrating slight asymmetric prominence of the left ventricle. Brain: No midline shift. No intracranial masses or hemorrhage. Smith-white matter interface is normal. Skull and face: Calvarium and visualized facial bones are intact, without suspicious lesions. Sinuses: Visualized sinuses and mastoids are clear. IMPRESSION: Unchanged appearance of mild asymmetric appearance of the ventricles dating to 2020. Otherwise, no acute intracranial process is identified. Dictated by: Giovana Alexandra M.D. on 07/11/2023 at 14:09 Approved by: Giovana Alexandra M.D. on 07/11/2023 at 14:10 ECG Data Attestation: I personally reviewed and interpreted this ECG as follows: Prior ECG tracings: available for review Interpretation: Sinus bradycardia rate of 56 MO 174 QRS 80 QTC of 430. No acute ST changes appreciated nonspecific change. Patient had sinus rhythm rate 87 but otherwise no acute changes does do segments. MDM Narrative Medical decision making narrative: 68-year-old female with complaint of hypertension 1 week of headache, double vision which is binocular on exam, resolves when left or right eye is covered. Patient does not have any other clear acute neurologic changes. She does note she had a similar episode about a year ago has been elevated 180-190 range for the past week does take medication for hypertension, diabetes dyslipidemia. Plan for stroke workup. Head CT negative except for slight mild asymmetric appearance of the ventricles dating [address] angio of the neck, is negative Labs CBC shows no acute change CMP shows a glucose of 142 but otherwise normal with a TSH less than 0.015, free T4 and T3 pending. EKG shows sinus bradycardia Spoke with Ophthalmology, Dr. Bello would recommend adding on ESR CRP with headache would recommend holding off on MR suspect patient might have a lateral rectus palsy. These are typically microvascular in MR would not be helpful for this. Be happy to see the patient they can follow up in the next 1-2 weeks unless ESR/CRP are elevated to re-contact. CRP is negative, ESR is negative making temporal arteritis unlikely source. T4/T3 are pending the machine is malfunctioning we will not be available until tomorrow. Patient is aware she is to follow up results. Discussed findings with patient. Need for follow-up. All questions answered. Discussed return precautions. Discharge Plan Departure Patient Disposition: Home Clinical Impression: Vertical diplopia Activity Restrictions/Additional Instructions: Follow up with Ophthalmology. I reviewed your case with them today. Call today or tomorrow to set up an appointment they would like to see you in the next week or so. Please continue your home medications as prescribed. If your blood pressure is persistently in the 190s at home you can increase your irbesartan to 2 tablets daily. Please return for new or worsening symptoms, numbness tingling or weakness, increasing changes of vision, passing out, new chest pain or shortness of breath, persistent vomiting or other new or concerning changes. Prescriptions: No Action atorvastatin 10 mg tablet 10 mg PO DAILY metoprolol succinate 100 mg tablet extended release 24 hr 100 mg PO BID irbesartan 150 mg tablet 150 mg PO DAILY Janumet 50-1,000 mg tablet 1 tab PO BID Referrals: Artur Bello MD [Physician] - Nina Jackson PA-C [Primary Care Provider] - Stand Alone Forms: Patient Portal/API
[2023-07-11 12:31] LABS: Add Manual Diff / Slide Review NO; Basophils Absolute Auto 100 /uL (0-100); Basophils Percent Auto 0.9 % (0-2); Eosinophils Absolute Auto 400 /uL (0-450); Eosinophils Percent Auto 5.1 % (2-4); Hemoglobin 15.3 g/dL (12.0-16.0); Lymphocytes Absolute Auto 2400 /uL (1100-4500); Lymphocytes Percent Auto 33.9 % (25-40); Mean Corpuscular HGB Conc 34.7 % (30-36); Mean Corpuscular Hemoglobin 31.2 PG (26-34); Mean Corpuscular Volume 90.1 fL (80-100); Monocytes Absolute Auto 500 /uL (0-900); Monocytes Percent Auto 7.3 % (3-14); Neutrophils Absolute Auto 3800 /uL (1500-7000); Neutrophils Percent Auto 52.8 % (50-75); Platelet Count 252 X10^3/uL (150-400); Red Blood Cell Count 4.88 X10^6/uL (4.0-5.2); White Blood Cell Count 7.2 X10^3/uL (4.5-11.0)
[2023-07-11 12:39] LABS: INR 0.9 (0.9-1.3); Prothrombin Time 10.7 SECONDS (9.4-12.5)
[2023-07-11 12:41] LABS: PTT Partial Thromboplastin Tim 36 SECONDS (25.1-36.5)
[2023-07-11 12:49] LABS: Alanine Aminotransferase 30 IU/L (<35); Albumin 4.9 g/dL (3.5-5.0); Albumin Globulin Ratio 1.4 (1.0-2.8); Alkaline Phosphatase 105 U/L (38-126); Aspartate Aminotransferase 27 IU/L (14-36); BUN Creatinine Ratio 16.9 (6-22); Bilirubin Total 1.1 mg/dL (0.2-1.3); Blood Urea Nitrogen 12 mg/dL (7-17); Calcium 10.1 mg/dL (8.4-10.2); Carbon Dioxide 27 mmol/L (22-32); Chloride 105 mmol/L (98-107); Creatine Kinase 119 U/L (30-135); Estimated Glomerular Filt Rate > 60 mL/min (>60); Globulin 3.6 g/dL (1.7-4.1); Glucose 142 mg/dL (80-110); Lipase 294 U/L (23-300); Magnesium 1.9 mg/dL (1.6-2.3); Sodium 139 mmol/L (137-145); Total Protein 8.5 g/dL (6.3-8.2)
--- NOTE | 2023-07-11 12:49 | DI.CT.S_ITS ---
PROCEDURE: CT ANGIO HEAD AND NECK INDICATIONS: binocular vertical diplopia, hypertension x1 week TECHNIQUE: After the administration of intravenous contrast, 1 mm thick sections acquired from the aortic arch through the [place] of [place]. 3-dimensional [id number]-ixutzqrbwb (MIP) and/or volume rendering reformats were acquired of the central intracranial vasculature and neck separately. For radiation dose reduction, the following was used: automated exposure control, adjustment of mA and/or kV according to patient size. COMPARISON: [facility], CT, CT HEAD/BRAIN WO CON, 07/11/2023, 13:02. [facility], MR, MR HEAD/BRAIN WO/W CON, 09/21/2020, 13:07. [facility], CT, CT HEAD/BRAIN WO CON, 09/21/2020, 9:11. [facility], CT, CT HEAD/BRAIN WO CON, 12/03/2019, 11:36. FINDINGS: Image quality: Diagnostic. BRAIN: Please see separately dictated CT head report of 07/11/2023. HEAD CT ANGIOGRAPHY: Anterior circulation: Intracranial internal carotid arteries are normal in size and flow. The flow within the paired anterior cerebral arteries is normal and symmetric. The flow within the middle cerebral arteries is normal and symmetric. The anterior communicating artery is seen. No aneurysms are seen. Posterior circulation: Right vertebral artery dominance. Visualized portions of the vertebral arteries demonstrate normal caliber, and join to form a normal appearing basilar artery. Flow within the posterior cerebral arteries is normal and symmetric. No aneurysms are seen. NECK CT ANGIOGRAPHY: Carotid system: The great vessels demonstrate a conventional anatomy as they arise from the aortic arch. The origins of the common carotid arteries appear patent. The common carotid arteries demonstrate normal caliber and courses. The bifurcation regions are both widely patent. The internal carotid arteries demonstrate normal calibers and courses. Posterior circulation: The origins of the vertebral arteries both appear widely patent. The more superior extracranial portions of both vertebral arteries also demonstrate normal courses and calibers. They join to form a normal appearing basilar artery. Soft tissues: Visualized neck soft tissues demonstrate no suspicious abnormalities. Bones: No suspicious bony lesions. Visualized cervical spine appears normally aligned. IMPRESSION: No areas of hemodynamically significant stenosis, vascular occlusion or aneurysmal dilation within the anterior circulation. No areas of hemodynamically significant stenosis, vascular occlusion or aneurysmal dilation within the posterior circulation. No areas of hemodynamically significant stenosis, vascular occlusion or aneurysmal dilation within the neck vasculature. Any quantitative measurements of stenosis were performed using NASCET criteria. Dictated by: Giovana Alexandra M.D. on 07/11/2023 at 14:10 Approved by: Giovana Alexandra M.D. on 07/11/2023 at 14:14
--- NOTE | 2023-07-11 12:49 | DI.CT.S_ITS ---
PROCEDURE: CT HEAD/BRAIN WO CON INDICATIONS: htn, vertical binocular diplopia x1 week TECHNIQUE: Noncontrast 4.5 mm thick angled axial sections acquired from the foramen magnum to the vertex, with coronal and sagittal reformats. For radiation dose reduction, the following was used: automated exposure control, adjustment of mA and/or kV according to patient size. COMPARISON: , CT, CT ANGIO HEAD AND NECK, 07/11/2023, 13:02. , MR, MR HEAD/BRAIN WO/W CON, 09/21/2020, 13:07. , CT, CT HEAD/BRAIN WO CON, 12/03/2019, 11:36. , CT, CT HEAD/BRAIN WO CON, 09/21/2020, 9:11. FINDINGS: Image quality: Diagnostic. CSF spaces: Basal cisterns are patent. No extra-axial fluid collections. Ventricles are unchanged appearance demonstrating slight asymmetric prominence of the left ventricle. Brain: No midline shift. No intracranial masses or hemorrhage. Smith-white matter interface is normal. Skull and face: Calvarium and visualized facial bones are intact, without suspicious lesions. Sinuses: Visualized sinuses and mastoids are clear. IMPRESSION: Unchanged appearance of mild asymmetric appearance of the ventricles dating to 2020. Otherwise, no acute intracranial process is identified. Dictated by: Giovana Alexandra M.D. on 07/11/2023 at 14:09 Approved by: Giovana Alexandra M.D. on 07/11/2023 at 14:10
[2023-07-11 13:05] LABS: HEMOLYSIS 20 (0-50); Troponin I < 0.012 ng/mL (0.01-0.034)
[2023-07-11 13:44] LABS: Thyroid Stimulating Hormone < 0.015 uIU/mL (0.47-4.68)
[2023-07-11] MEDS: ACETAMINOPHEN 325 MG TABLET 975 MG PO (15:05)
[2023-07-11 15:08] LABS: C-Reactive Protein Quant < 0.5 mg/dL (<1.0)
[2023-07-11 15:43] LABS: Erythrocyte Sedimentation Rate 6 MM/HR (0-20)
== END 2023-07-11 16:35 | disposition home or self-care (01) ==
PROVIDERS: Emergency Provider Emergency Medicine; Family Provider Physician Assistant Medical; PCP Physician Assistant Medical
DX: H53.2 Diplopia (principal); R00.1 Bradycardia, unspecified; R51.9 Headache, unspecified
CPT/HCPCS: 36415; 70450; 70496; 70498; 71045; 80053; 81001; 82550; 83690; 83735; 84439; 84443; 84481; 84484; 85025; 85610; 85651; 85730; 86140; 93005; 93010; 99284; Q9967